=== PATIENT | female | born 1950 | race African-American/Black ===

== ENCOUNTER 2017-07-07 10:40 | Inpatient (IN) | payer BC, MEDICARE ==
[~2017-07-07] VITALS: Ht 162.6 cm; Wt 54.4 kg
[2017-07-07] MEDS ORDERED: METHYLPREDNISOLONE SOD SUCC 125 MG/2 ML VIAL IV STA (11:31)
[2017-07-07] MEDS ORDERED: IPRATROPIUM/ALBUTEROL 0.5-3(2.5)MG/3ML NEB HHN ONE (11:45)
[2017-07-07 12:02] LABS: BG BASE EXCESS -3.1 mmol/L (-2.0-2.0); BG CARBOXYHEMOGLOBIN 0.2 % (0.5-1.5); BG FRACTION INSPIRED OXYGEN 21; BG HCO3 ACT 19.5 mmol/L (22.0-26.0); BG METHEMOGLOBIN 0.1 % (0.0-1.5); BG OXYHEMOGLOBIN 91.7 % (94.0-97.0); BG PCO2 27.5 mmHg (35.0-45.0); BG PH 7.468 (7.350-7.450); BG PO2 60.5 mmHg (75.0-100.0); BG SAMPLE SITE RIGHT RADIAL; BG TOTAL HEMOGLOBIN 11.6 g/dL (12.0-18.0); BG VENT MODE ROOM AIR
[2017-07-07 12:44] LABS: BASOPHILS % 0.7 % (0.0-2.0); EOSINOPHILS % 2.1 % (0.0-5.0); HEMATOCRIT. 33.7 % (36.0-48.0); HEMOGLOBIN. 10.8 g/dL (12.0-16.0); LYMPHOCYTES % 19.4 % (20.0-50.0); MEAN CORPUSCULAR HEMOGLOBIN 27.3 pg (28.0-32.0); MEAN CORPUSCULAR VOLUME 85.5 fL (81.0-99.0); MEAN PLATELET VOLUME 9.5 fl (7.4-10.4); MONOCYTES % 9.6 % (2.0-8.0); NEUTROPHILS % 68.2 % (40.0-76.0); PLATELET 401 x1000/uL (130-400); RED BLOOD CELL COUNT 3.95 mill/uL (4.2-5.4); RED CELL DISTRIBUTION WIDTH 14.6 % (11.6-14.6)
[2017-07-07 12:52] LABS: INR 1.1; PROTHROMBIN TIME 11.7 sec (9.4-11.6)
[2017-07-07 12:57] LABS: CHLORIDE 107 mEq/L (98-107); CREATINE KINASE 107 IU/L (26-192)
[2017-07-07 12:59] LABS: TROPONIN I 0.05 ng/mL (0.00-0.04)
[2017-07-07] MEDS ORDERED: FUROSEMIDE 20MG/2ML VIAL IVP ONE (14:00)
[2017-07-07] MEDS ORDERED: LEVOFLOXACIN 750MG PREMIX 150 ML IV ONE (14:15)
[2017-07-07 19:00] VITALS: BP 164/94
[2017-07-07 20:00] VITALS: BP 164/94
[2017-07-07] MEDS ORDERED: MAGNESIUM/ALUMINUM HYDROXIDE/SIMETHICONE 30ML UDC PO PRN (20:30)
[2017-07-07] MEDS ORDERED: HYDROCODONE/ACETAMINOPHEN 5/325MG TABLET PO PRN (20:30)
[2017-07-07] MEDS ORDERED: ACETAMINOPHEN 325MG TABLET PO PRN (20:30)
[2017-07-07] MEDS ORDERED: MORPHINE SULFATE 4 MG/ML CPJ (NOT FOR IM USE) IV PRN (20:30)
[2017-07-07] MEDS ORDERED: LORAZEPAM 2MG/ML CPJ IV PRN (20:30)
[2017-07-07] MEDS ORDERED: ONDANSETRON HCL 4MG/2ML VIAL IV PRN (20:30)
[2017-07-07] MEDS ORDERED: PIPERACILLIN/TAZ 2.25G PREMIX 50 ML IV SCH (22:00)
[2017-07-07] MEDS: PIPERACILLIN/TAZ 2.25G PREMIX 50 ML IV SCH (22:03)
[2017-07-07] MEDS: CLONIDINE 0.1MG TABLET PO PRN (22:03)
[2017-07-07] MEDS: IPRATROPIUM/ALBUTEROL 0.5-3(2.5)MG/3ML NEB INH PRN (22:24)
[2017-07-08] VITALS (7 sets, daily range): BP systolic 112–174; BP diastolic 70–98
[2017-07-08] MEDS: CLONIDINE 0.1MG TABLET PO PRN (04:48)
[2017-07-08] MEDS: PIPERACILLIN/TAZ 2.25G PREMIX 50 ML IV SCH ×2 (05:07→13:45)
[2017-07-08 06:37] LABS: BASOPHILS % 0.1 % (0.0-2.0); HEMATOCRIT. 29.7 % (36.0-48.0); HEMOGLOBIN. 9.6 g/dL (12.0-16.0); LYMPHOCYTES % 8.4 % (20.0-50.0); MEAN CORPUSCULAR HEMOGLOBIN 27.4 pg (28.0-32.0); MEAN CORPUSCULAR VOLUME 84.4 fL (81.0-99.0); MEAN PLATELET VOLUME 9.5 fl (7.4-10.4); MONOCYTES % 4.5 % (2.0-8.0); PLATELET 383 x1000/uL (130-400); RED BLOOD CELL COUNT 3.52 mill/uL (4.2-5.4); RED CELL DISTRIBUTION WIDTH 14.2 % (11.6-14.6)
[2017-07-08 07:30] LABS: CHLORIDE 107 mEq/L (98-107)
[2017-07-08] MEDS: AMLODIPINE 10MG TABLET PO SCH (08:35)
[2017-07-08] MEDS ORDERED: FUROSEMIDE 40MG/4ML VIAL IV SCH (09:00)
[2017-07-08] MEDS: SODIUM CHLORIDE 0.45% 1,000 ML IV SCH ×2 (11:06→20:27)
[2017-07-08 15:00] LABS: HEPATITIS B SURFACE ANTIGEN NEGATIVE
[2017-07-08 15:28] LABS: HEPATITIS B CORE AB IGM NEGATIVE
[2017-07-08 15:28] LABS: CLARITY URINE CLEAR (CLEAR); COLOR URINE YELLOW (YELLOW); KETONES URINE NEGATIVE (NEGATIVE); LEUKOCYTE ESTERASE URINE 2+ (NEGATIVE); NITRITE URINE NEGATIVE (NEGATIVE); OCCULT BLOOD URINE 2+ (NEGATIVE); PROTEIN URINE 3+ (NEGATIVE); SPECIFIC GRAVITY URINE 1.016 (1.005-1.030); UROBILINOGEN URINE 0.2 E.U./dL (0.2-1.0)
[2017-07-08 15:30] LABS: HEPATITIS A AB IGM NEGATIVE (NEGATIVE)
[2017-07-09] MEDS: PIPERACILLIN/TAZOBACTAM 2.25 G in SODIUM CHLORIDE 0.9% 50 ML IV SCH ×4 (00:22→21:55)
[2017-07-09 04:00] VITALS: BP 132/85
[2017-07-09] MEDS: SODIUM CHLORIDE 0.45% 1,000 ML IV SCH (06:15)
[2017-07-09] MEDS: AMLODIPINE 10MG TABLET PO SCH (08:27)
[2017-07-09 08:42] VITALS: BP 139/88
[2017-07-09 12:00] LABS: BASOPHILS % 0.6 % (0.0-2.0); EOSINOPHILS % 2.3 % (0.0-5.0); HEMATOCRIT. 27.9 % (36.0-48.0); HEMOGLOBIN. 8.9 g/dL (12.0-16.0); LYMPHOCYTES % 12.5 % (20.0-50.0); MEAN CORPUSCULAR HEMOGLOBIN 27.3 pg (28.0-32.0); MEAN CORPUSCULAR VOLUME 85.4 fL (81.0-99.0); MEAN PLATELET VOLUME 9.6 fl (7.4-10.4); MONOCYTES % 6.7 % (2.0-8.0); NEUTROPHILS % 77.9 % (40.0-76.0); PLATELET 379 x1000/uL (130-400); RED BLOOD CELL COUNT 3.27 mill/uL (4.2-5.4); RED CELL DISTRIBUTION WIDTH 14.6 % (11.6-14.6)
[2017-07-09 15:21] LABS: INR 1.1; PARTIAL THROMBOPLASTIN TIME 27.3 sec (23.4-31.0); PROTHROMBIN TIME 11.9 sec (9.4-11.6)
[2017-07-09 16:22] VITALS: BP 126/72
[2017-07-09 20:00] VITALS: BP 142/71
[2017-07-10] VITALS (12 sets, daily range): BP systolic 113–150; BP diastolic 61–95
[2017-07-10] MEDS: PIPERACILLIN/TAZOBACTAM 2.25 G in SODIUM CHLORIDE 0.9% 50 ML IV SCH ×3 (06:00→21:17)
[2017-07-10 07:24] LABS: BASOPHILS % 0.7 % (0.0-2.0); HEMATOCRIT. 29.7 % (36.0-48.0); HEMOGLOBIN. 9.6 g/dL (12.0-16.0); LYMPHOCYTES % 14.9 % (20.0-50.0); MEAN CORPUSCULAR HEMOGLOBIN 27.6 pg (28.0-32.0); MEAN CORPUSCULAR VOLUME 85.7 fL (81.0-99.0); MEAN PLATELET VOLUME 9.3 fl (7.4-10.4); MONOCYTES % 11.3 % (2.0-8.0); NEUTROPHILS % 67.1 % (40.0-76.0); PLATELET 343 x1000/uL (130-400); RED BLOOD CELL COUNT 3.47 mill/uL (4.2-5.4); RED CELL DISTRIBUTION WIDTH 14.6 % (11.6-14.6)
[2017-07-10] MEDS ORDERED: LIDOCAINE 1%/EPI 1:200,000 10 ML VIAL IJ ONE (07:41)
[2017-07-10] MEDS ORDERED: HEPARIN 1000 UNITS/ML 10ML ONE (07:41)
[2017-07-10] MEDS ORDERED: SODIUM BICARBONATE 4% (2.4MEQ) 5ML VIAL IV ONE ×2 (07:41→11:36)
[2017-07-10] MEDS ORDERED: FENTANYL CITRATE/PF 50MCG/ML 2ML VIAL ONE ×2 (07:55→12:37)
[2017-07-10 07:58] LABS: *AMPHETAMINES SCREEN URINE NEGATIVE (NEGATIVE); *BARBITURATES SCREEN URINE NEGATIVE (NEGATIVE); *COCAINE SCREEN URINE NEGATIVE (NEGATIVE); METHADONE URINE SCREEN NEGATIVE (NEGATIVE)
[2017-07-10 07:59] LABS: *BENZODIAZEPINES SCREEN URINE NEGATIVE (NEGATIVE); CANNABINOID URINE SCREEN NEGATIVE (NEGATIVE); OPIATES URINE SCREEN NEGATIVE (NEGATIVE); PHENCYCLIDINE URINE SCREEN NEGATIVE (NEGATIVE)
[2017-07-10] MEDS: AMLODIPINE 10MG TABLET PO SCH (09:23)
[2017-07-10] MEDS ORDERED: LIDOCAINE HCL/PF 1% 10 MG/ML 5ML VIAL ONE (11:36)
[2017-07-10 13:07] LABS: A/G RATIO 0.7 (0.7-1.7); ALBUMIN 2.8 g/dL (2.9-4.4); ALPHA-1-GLOBULIN 0.3 g/dL (0.0-0.4); BETA GLOBULIN 1.1 g/dL (0.7-1.3); GAMMA GLOBULINS 1.5 g/dL (0.4-1.8); GLOBULIN TOTAL 3.9 g/dL (2.2-3.9); M-SPIKE Not Observed g/dL (Not Observed); TOTAL PROTEIN SERUM 6.7 g/dL (6.0-8.5)
[2017-07-10] MEDS ORDERED: FENTANYL CITRATE/PF 50MCG/ML 2ML VIAL IV ONE (13:15)
[2017-07-10 18:03] LABS: HEMATOCRIT 27.9 % (36.0-48.0); HEMOGLOBIN 9.1 g/dL (12.0-16.0)
[2017-07-10 18:11] LABS: INR 1.2; PARTIAL THROMBOPLASTIN TIME 27.6 sec (23.4-31.0)
[2017-07-11] VITALS: BP 127/73
[2017-07-11 04:00] VITALS: BP 146/77
[2017-07-11] MEDS: PIPERACILLIN/TAZOBACTAM 2.25 G in SODIUM CHLORIDE 0.9% 50 ML IV SCH ×2 (05:12→13:18)
[2017-07-11 07:16] LABS: BASOPHILS % 0.5 % (0.0-2.0); EOSINOPHILS % 5.9 % (0.0-5.0); HEMATOCRIT. 27.9 % (36.0-48.0); HEMOGLOBIN. 8.8 g/dL (12.0-16.0); LYMPHOCYTES % 16.4 % (20.0-50.0); MEAN CORPUSCULAR HEMOGLOBIN 26.9 pg (28.0-32.0); MEAN CORPUSCULAR VOLUME 85.1 fL (81.0-99.0); MEAN PLATELET VOLUME 9.5 fl (7.4-10.4); MONOCYTES % 12.4 % (2.0-8.0); NEUTROPHILS % 64.8 % (40.0-76.0); PLATELET 314 x1000/uL (130-400); RED BLOOD CELL COUNT 3.28 mill/uL (4.2-5.4); RED CELL DISTRIBUTION WIDTH 14.4 % (11.6-14.6)
[2017-07-11 07:49] LABS: PHOSPHORUS 5.3 mg/dL (2.5-4.9)
[2017-07-11 08:00] VITALS: BP 145/90
[2017-07-11] MEDS: AMLODIPINE 10MG TABLET PO SCH (09:35)
[2017-07-11] MEDS ORDERED: POTASSIUM CHLORIDE 20MEQ/PACKET PO NR (09:45)
[2017-07-11 12:00] VITALS: BP 142/83
[2017-07-11 16:00] VITALS: BP 131/86
[2017-07-11 20:00] VITALS: BP 122/79
[2017-07-11] MEDS: PIPERACILLIN/TAZ 2.25G PREMIX 50 ML IV SCH (21:00)
[2017-07-12] VITALS: BP 122/68
[2017-07-12 04:00] VITALS: BP 149/91
[2017-07-12] MEDS: PIPERACILLIN/TAZ 2.25G PREMIX 50 ML IV SCH (05:55)
[2017-07-12 07:01] LABS: BASOPHILS % 0.4 % (0.0-2.0); EOSINOPHILS % 5.6 % (0.0-5.0); HEMATOCRIT. 29.4 % (36.0-48.0); HEMOGLOBIN. 9.4 g/dL (12.0-16.0); LYMPHOCYTES % 12.1 % (20.0-50.0); MEAN CORPUSCULAR HEMOGLOBIN 27.2 pg (28.0-32.0); MEAN CORPUSCULAR VOLUME 84.9 fL (81.0-99.0); MEAN PLATELET VOLUME 9.2 fl (7.4-10.4); MONOCYTES % 13.2 % (2.0-8.0); NEUTROPHILS % 68.7 % (40.0-76.0); PLATELET 310 x1000/uL (130-400); RED BLOOD CELL COUNT 3.46 mill/uL (4.2-5.4); RED CELL DISTRIBUTION WIDTH 14.5 % (11.6-14.6)
[2017-07-12 08:00] VITALS: BP 144/86
[2017-07-12] MEDS: AMLODIPINE 10MG TABLET PO SCH (08:23)
[2017-07-12 13:04] VITALS: BP 143/82
[2017-07-12] MEDS: IPRATROPIUM/ALBUTEROL 0.5-3(2.5)MG/3ML NEB INH PRN (14:10)
== END 2017-07-12 15:29 | disposition home or self-care (01) | DRG 682 ==
LOC: ER 11:27 → 8WST 13:58 → EDBEDREQ 14:00 → ENRESERV 15:36
PROVIDERS: ADMIT Hospitalist; ATTEND Hospitalist
PROC: 0TB43ZX Excision of Left Kidney Pelvis, Percutaneous Approach, Diagnostic (ICD-10-PCS; principal; 2017-07-10)
DX: N17.9 Acute kidney failure, unspecified (principal); J96.01 Acute respiratory failure with hypoxia; E43 Unspecified severe protein-calorie malnutrition; I50.43 Acute on chronic combined systolic (congestive) and diastolic (congestive) heart failure; E87.2 Acidosis; J18.9 Pneumonia, unspecified organism; I13.0 Hypertensive heart and chronic kidney disease with heart failure and stage 1 through stage 4 chronic kidney disease, or unspecified chronic kidney disease; I16.0 Hypertensive urgency; D63.8 Anemia in other chronic diseases classified elsewhere; D72.819 Decreased white blood cell count, unspecified; Z60.2 Problems related to living alone; N18.9 Chronic kidney disease, unspecified; Z68.20 Body mass index [BMI] 20.0-20.9, adult; Z82.49 Family history of ischemic heart disease and other diseases of the circulatory system; Z87.891 Personal history of nicotine dependence; Z90.710 Acquired absence of both cervix and uterus; Z88.2 Allergy status to sulfonamides
CPT/HCPCS: 36415; 36600; 71045; 71250; 76770; 76942; 80048; 80053; 80305; 81003; 82375; 82550; 82570; 82575; 82805; 83520; 83605; 83690; 83735; 83880; 84100; 84155; 84156; 84165; 84439; 84443; 84484; 85014; 85018; 85025; 85379; 85610; 85730; 86038; 86160; 86256; 86705; 86709; 86803; 87040; 87086; 87186; 87340; 87804; 88305; 88346; 88348; 93005; 93306; 93970; 94640; 96365; 96375; 99285; J1644; J1940; J1956; J2543; J2930; J3010; J3490; J7050; J7620; A4315

== ENCOUNTER 2017-08-30 11:18 | Inpatient (IN) | payer BC, MEDICARE ==
[~2017-08-30] VITALS: Ht 162.6 cm; Wt 66.7 kg
[2017-08-30 12:57] LABS: BASOPHILS % 0.9 % (0.0-2.0); EOSINOPHILS % 1.9 % (0.0-5.0); HEMATOCRIT. 34.2 % (36.0-48.0); HEMOGLOBIN. 11.2 g/dL (12.0-16.0); LYMPHOCYTES % 19.3 % (20.0-50.0); MEAN CORPUSCULAR HEMOGLOBIN 27.3 pg (28.0-32.0); MEAN CORPUSCULAR VOLUME 83.1 fL (81.0-99.0); MEAN PLATELET VOLUME 8.1 fl (7.4-10.4); MONOCYTES % 11.9 % (2.0-8.0); PLATELET 342 x1000/uL (130-400); RED BLOOD CELL COUNT 4.12 mill/uL (4.2-5.4); RED CELL DISTRIBUTION WIDTH 15.2 % (11.6-14.6)
[2017-08-30 13:05] LABS: CHLORIDE 114 mEq/L (98-107)
[2017-08-30 13:06] LABS: INR 1.1; PARTIAL THROMBOPLASTIN TIME 29.3 sec (23.4-31.0); PROTHROMBIN TIME 11.4 sec (9.4-11.6)
[2017-08-30] MEDS ORDERED: LORAZEPAM 0.5MG TABLET PO PRN (16:15)
[2017-08-30] MEDS ORDERED: ZOLPIDEM TARTRATE 5MG TABLET PO PRN (16:15)
[2017-08-30] MEDS ORDERED: ACETAMINOPHEN 325MG TABLET PO PRN (16:15)
[2017-08-30] MEDS ORDERED: DOCUSATE SODIUM 100MG CAPSULE PO PRN (16:15)
[2017-08-30] MEDS ORDERED: DIPHENHYDRAMINE 50MG/ML VIAL IV PRN (16:15)
[2017-08-30] MEDS ORDERED: IPRATROPIUM/ALBUTEROL 0.5-3(2.5)MG/3ML NEB INH PRN (16:15)
[2017-08-30] MEDS ORDERED: ENOXAPARIN 40MG/0.4ML SYR SUBCUT SCH (16:15)
[2017-08-30] MEDS ORDERED: ONDANSETRON HCL 4MG/2ML VIAL IV PRN (16:15)
[2017-08-30] MEDS ORDERED: NITROGLYCERIN 0.4MG TABLET SL SL PRN (16:15)
[2017-08-30] MEDS ORDERED: MAGNESIUM/ALUMINUM HYDROXIDE/SIMETHICONE 30ML UDC PO PRN (16:15)
[2017-08-30] MEDS ORDERED: CLONIDINE 0.1MG TABLET PO PRN (16:15)
[2017-08-30] MEDS ORDERED: GUAIFENESIN 200MG/10ML SUGAR FREE UDC PO PRN (16:15)
[2017-08-30] MEDS ORDERED: MORPHINE SULFATE 4 MG/ML CPJ (NOT FOR IM USE) IV PRN (16:30)
[2017-08-30] MEDS ORDERED: TRAMADOL 50MG TABLET PO PRN (16:30)
[2017-08-30] MEDS ORDERED: NA PHOS,M-B/NA PHOS,DI-BA ENEMA 118ML PR PRN (21:00)
[2017-08-30] MEDS ORDERED: FAMOTIDINE 20MG TABLET PO SCH (21:00)
[2017-08-30 22:00] VITALS: BP 163/101
[2017-08-30] MEDS: FUROSEMIDE 40MG/4ML VIAL IVP SCH (22:56)
[2017-08-30] MEDS: METOPROLOL TARTRATE 25MG TABLET PO SCH (22:57)
[2017-08-30] MEDS: SPIRONOLACTONE 25MG TABLET PO SCH (22:57)
[2017-08-30] MEDS ORDERED: METOLAZONE 10MG TABLET PO SCH (23:00)
[2017-08-30] MEDS: CITRIC ACID/SODIUM CITRATE SOLN 15ML UDC PO SCH (23:06)
[2017-08-30 23:35] VITALS: BP 163/101
[2017-08-30] MEDS ORDERED: FURO40TA5 PO (23:57)
[2017-08-30] MEDS ORDERED: AMLO10TA80 PO (23:57)
[2017-08-31] VITALS (7 sets, daily range): BP systolic 135–166; BP diastolic 80–100
[2017-08-31 08:08] LABS: CREATINE KINASE 61 IU/L (26-192)
[2017-08-31] MEDS: FUROSEMIDE 40MG/4ML VIAL IVP SCH ×2 (08:36→21:27)
[2017-08-31] MEDS: CITRIC ACID/SODIUM CITRATE SOLN 15ML UDC PO SCH ×3 (08:36→17:34)
[2017-08-31] MEDS: SPIRONOLACTONE 25MG TABLET PO SCH ×2 (08:36→21:33)
[2017-08-31] MEDS: METOPROLOL TARTRATE 25MG TABLET PO SCH ×2 (08:37→21:33)
[2017-08-31] MEDS: FAMOTIDINE 20MG TABLET PO SCH (08:37)
[2017-08-31] MEDS: ENOXAPARIN 30MG/0.3ML SYR SUBCUT SCH (08:37)
[2017-08-31] MEDS: ASPIRIN 325MG EC TABLET PO SCH (08:39)
[2017-08-31 12:05] LABS: CHLORIDE 116 mEq/L (98-107)
[2017-08-31 12:15] LABS: BASOPHILS % 1.2 % (0.0-2.0); EOSINOPHILS % 3.9 % (0.0-5.0); HEMATOCRIT. 32.5 % (36.0-48.0); HEMOGLOBIN. 10.4 g/dL (12.0-16.0); LYMPHOCYTES % 22.3 % (20.0-50.0); MEAN CORPUSCULAR HEMOGLOBIN 26.5 pg (28.0-32.0); MEAN CORPUSCULAR VOLUME 83.1 fL (81.0-99.0); MEAN PLATELET VOLUME 9.2 fl (7.4-10.4); MONOCYTES % 12.7 % (2.0-8.0); NEUTROPHILS % 59.9 % (40.0-76.0); PLATELET 328 x1000/uL (130-400); RED BLOOD CELL COUNT 3.91 mill/uL (4.2-5.4); RED CELL DISTRIBUTION WIDTH 14.9 % (11.6-14.6)
[2017-08-31 16:16] LABS: CREATINE KINASE 67 IU/L (26-192)
[2017-08-31 16:19] LABS: CREATINE KINASE MB FRACTION 1.1 ng/mL (0.5-3.6)
[2017-09-01] VITALS (20 sets, daily range): BP systolic 110–196; BP diastolic 11–129
[2017-09-01 07:27] LABS: BASOPHILS % 1.1 % (0.0-2.0); EOSINOPHILS % 2.7 % (0.0-5.0); HEMOGLOBIN. 10.7 g/dL (12.0-16.0); LYMPHOCYTES % 28.5 % (20.0-50.0); MEAN CORPUSCULAR HEMOGLOBIN 26.6 pg (28.0-32.0); MEAN CORPUSCULAR VOLUME 82.1 fL (81.0-99.0); MEAN PLATELET VOLUME 8.7 fl (7.4-10.4); NEUTROPHILS % 56.7 % (40.0-76.0); PLATELET 364 x1000/uL (130-400); RED BLOOD CELL COUNT 4.01 mill/uL (4.2-5.4); RED CELL DISTRIBUTION WIDTH 14.6 % (11.6-14.6)
[2017-09-01 07:41] LABS: PHOSPHORUS 4.1 mg/dL (2.5-4.9)
[2017-09-01] MEDS ORDERED: SODIUM BICARBONATE 4% (2.4MEQ) 5ML VIAL IV ONE (08:43)
[2017-09-01] MEDS ORDERED: LIDOCAINE HCL/PF 1% 10 MG/ML 5ML VIAL ONE (08:43)
[2017-09-01] MEDS ORDERED: POTASSIUM CHLORIDE 20MEQ/PACKET PO NR (08:45)
[2017-09-01] MEDS ORDERED: CEFAZOLIN 1000MG PREMIX 50 ML IV ONE ×2 (08:45→09:34)
[2017-09-01] MEDS: ENOXAPARIN 30MG/0.3ML SYR SUBCUT SCH (09:00)
[2017-09-01] MEDS: FUROSEMIDE 40MG/4ML VIAL IVP SCH (09:00)
[2017-09-01] MEDS: METOPROLOL TARTRATE 25MG TABLET PO SCH ×2 (09:00→20:53)
[2017-09-01] MEDS: SPIRONOLACTONE 25MG TABLET PO SCH ×2 (09:00→20:52)
[2017-09-01] MEDS ORDERED: FENTANYL CITRATE/PF 50MCG/ML 2ML VIAL ONE (09:34)
[2017-09-01 09:59] LABS: HEPATITIS B SURFACE ANTIGEN NEGATIVE
[2017-09-01] MEDS ORDERED: ATROPINE SULFATE 1MG/10ML SYR ONE (11:08)
[2017-09-01] MEDS ORDERED: FENTANYL CITRATE/PF 50MCG/ML 2ML VIAL IV ONE (11:30)
[2017-09-01] MEDS: CITRIC ACID/SODIUM CITRATE SOLN 15ML UDC PO SCH ×3 (11:40→17:37)
[2017-09-01] MEDS: ASPIRIN 325MG EC TABLET PO SCH (11:40)
[2017-09-01] MEDS: FAMOTIDINE 20MG TABLET PO SCH (11:40)
[2017-09-02] VITALS: BP 122/87
[2017-09-02] MEDS: FUROSEMIDE 40MG/4ML VIAL IVP SCH ×3 (00:11→20:32)
[2017-09-02 04:00] VITALS: BP 134/90
[2017-09-02 08:00] VITALS: BP 152/96
[2017-09-02] MEDS: ENOXAPARIN 30MG/0.3ML SYR SUBCUT SCH (09:25)
[2017-09-02] MEDS: FAMOTIDINE 20MG TABLET PO SCH (09:26)
[2017-09-02] MEDS: METOPROLOL TARTRATE 25MG TABLET PO SCH ×2 (09:27→20:32)
[2017-09-02] MEDS: SPIRONOLACTONE 25MG TABLET PO SCH ×2 (09:27→20:31)
[2017-09-02] MEDS: CITRIC ACID/SODIUM CITRATE SOLN 15ML UDC PO SCH ×3 (09:27→16:25)
[2017-09-02] MEDS: ASPIRIN 325MG EC TABLET PO SCH (09:50)
[2017-09-02 10:06] LABS: BG BASE EXCESS -4.7 mmol/L (-2.0-2.0); BG CARBOXYHEMOGLOBIN 0.1 % (0.5-1.5); BG DEOXYHEMOGLOBIN 2.1 % (0.0-5.0); BG FRACTION INSPIRED OXYGEN 24; BG HCO3 ACT 19.6 mmol/L (22.0-26.0); BG METHEMOGLOBIN 0.2 % (0.0-1.5); BG OXYGEN SATURATION 97.9 % (92.0-98.5); BG OXYHEMOGLOBIN 97.6 % (94.0-97.0); BG PCO2 33.4 mmHg (35.0-45.0); BG PH 7.386 (7.350-7.450); BG PO2 107.3 mmHg (75.0-100.0); BG SAMPLE SITE RIGHT RADIAL; BG TOTAL HEMOGLOBIN 11.3 g/dL (12.0-18.0); BG VENT MODE NASAL CANNULA
[2017-09-02 10:57] LABS: BASOPHILS % 1.1 % (0.0-2.0); EOSINOPHILS % 2.9 % (0.0-5.0); HEMOGLOBIN. 10.3 g/dL (12.0-16.0); LYMPHOCYTES % 21.7 % (20.0-50.0); MEAN CORPUSCULAR HEMOGLOBIN 27.3 pg (28.0-32.0); MEAN CORPUSCULAR VOLUME 82.2 fL (81.0-99.0); MEAN PLATELET VOLUME 8.6 fl (7.4-10.4); MONOCYTES % 13.6 % (2.0-8.0); NEUTROPHILS % 60.7 % (40.0-76.0); PLATELET 330 x1000/uL (130-400); RED BLOOD CELL COUNT 3.77 mill/uL (4.2-5.4); RED CELL DISTRIBUTION WIDTH 14.7 % (11.6-14.6)
[2017-09-02 11:49] LABS: PHOSPHORUS 3.7 mg/dL (2.5-4.9)
[2017-09-02 11:50] LABS: AMMONIA 21 uMol/L (<32)
[2017-09-02 12:15] LABS: VITAMIN B12 SERUM 637 pg/mL (211-911)
[2017-09-02 13:00] VITALS: BP 128/85
[2017-09-02 16:00] VITALS: BP 112/67
[2017-09-02 16:38] LABS: AMMONIA 32 uMol/L (<32)
[2017-09-02] MEDS: CLOPIDOGREL 75MG TABLET PO SCH (17:00)
[2017-09-02 18:07] LABS: T4 FREE 0.88 ng/dL (0.76-1.46)
[2017-09-02 20:00] VITALS: BP 134/91
[2017-09-02 20:38] LABS: CLARITY URINE CLEAR (CLEAR); COLOR URINE YELLOW (YELLOW); KETONES URINE NEGATIVE (NEGATIVE); LEUKOCYTE ESTERASE URINE NEGATIVE (NEGATIVE); NITRITE URINE NEGATIVE (NEGATIVE); OCCULT BLOOD URINE NEGATIVE (NEGATIVE); PROTEIN URINE 2+ (NEGATIVE); SPECIFIC GRAVITY URINE 1.012 (1.005-1.030); UROBILINOGEN URINE 0.2 E.U./dL (0.2-1.0)
[2017-09-03] VITALS: BP 131/82
[2017-09-03 04:00] VITALS: BP 142/94
[2017-09-03 06:51] LABS: BASOPHILS % 1.6 % (0.0-2.0); EOSINOPHILS % 3.5 % (0.0-5.0); HEMATOCRIT. 32.9 % (36.0-48.0); HEMOGLOBIN. 10.6 g/dL (12.0-16.0); MEAN CORPUSCULAR HEMOGLOBIN 26.6 pg (28.0-32.0); MEAN CORPUSCULAR VOLUME 82.4 fL (81.0-99.0); MEAN PLATELET VOLUME 8.5 fl (7.4-10.4); MONOCYTES % 13.6 % (2.0-8.0); NEUTROPHILS % 49.3 % (40.0-76.0); PLATELET 317 x1000/uL (130-400); RED BLOOD CELL COUNT 3.99 mill/uL (4.2-5.4); RED CELL DISTRIBUTION WIDTH 14.8 % (11.6-14.6)
[2017-09-03 07:21] LABS: PHOSPHORUS 4.8 mg/dL (2.5-4.9)
[2017-09-03] MEDS: FAMOTIDINE 20MG TABLET PO SCH (08:18)
[2017-09-03] MEDS: CITRIC ACID/SODIUM CITRATE SOLN 15ML UDC PO SCH ×3 (08:19→16:59)
[2017-09-03] MEDS: CLOPIDOGREL 75MG TABLET PO SCH (08:19)
[2017-09-03] MEDS: ENOXAPARIN 30MG/0.3ML SYR SUBCUT SCH (08:20)
[2017-09-03 08:24] VITALS: BP 149/92
[2017-09-03] MEDS: METOPROLOL TARTRATE 25MG TABLET PO SCH (09:00)
[2017-09-03] MEDS: SPIRONOLACTONE 25MG TABLET PO SCH (09:00)
[2017-09-03] MEDS ORDERED: FOLIC ACID 1MG TABLET PO SCH (09:00)
[2017-09-03] MEDS: FUROSEMIDE 40MG/4ML VIAL IVP SCH (09:00)
[2017-09-03 12:00] VITALS: BP 106/62
[2017-09-03 15:16] VITALS: BP 106/62
[2017-09-03 16:00] VITALS: BP 114/89
== END 2017-09-03 17:15 | DRG 291 ==
LOC: ER 11:38 → EDBEDREQ 14:55 → SUPCPDRO 18:16 → 8WST 19:14 → ENRESERV 19:14
PROVIDERS: ADMIT Internal Medicine; ATTEND Internal Medicine
PROC: 0JH63XZ Insertion of Tunneled Vascular Access Device into Chest Subcutaneous Tissue and Fascia, Percutaneous Approach (ICD-10-PCS; principal; 2017-09-01)
PROC: 02HV33Z Insertion of Infusion Device into Superior Vena Cava, Percutaneous Approach (ICD-10-PCS; 2017-09-01)
PROC: B5181ZA Fluoroscopy of Superior Vena Cava using Low Osmolar Contrast, Guidance (ICD-10-PCS; 2017-09-01)
PROC: 5A1D70Z Performance of Urinary Filtration, Intermittent, Less than 6 Hours Per Day (ICD-10-PCS; 2017-09-01)
PROC: 0JH63XZ Insertion of Tunneled Vascular Access Device into Chest Subcutaneous Tissue and Fascia, Percutaneous Approach (ICD-10-PCS; 2017-09-01)
PROC: 5A1D70Z Performance of Urinary Filtration, Intermittent, Less than 6 Hours Per Day (ICD-10-PCS; 2017-09-03)
DX: I13.2 Hypertensive heart and chronic kidney disease with heart failure and with stage 5 chronic kidney disease, or end stage renal disease (principal); J96.00 Acute respiratory failure, unspecified whether with hypoxia or hypercapnia; N17.0 Acute kidney failure with tubular necrosis; G92 Toxic encephalopathy; E44.0 Moderate protein-calorie malnutrition; R47.01 Aphasia; H53.469 Homonymous bilateral field defects, unspecified side; I50.33 Acute on chronic diastolic (congestive) heart failure; I50.43 Acute on chronic combined systolic (congestive) and diastolic (congestive) heart failure; N18.6 End stage renal disease; E87.0 Hyperosmolality and hypernatremia; E87.2 Acidosis; I69.354 Hemiplegia and hemiparesis following cerebral infarction affecting left non-dominant side; I42.9 Cardiomyopathy, unspecified; D63.8 Anemia in other chronic diseases classified elsewhere; R74.8 Abnormal levels of other serum enzymes; E78.5 Hyperlipidemia, unspecified; E78.00 Pure hypercholesterolemia, unspecified; D72.819 Decreased white blood cell count, unspecified; Z79.899 Other long term (current) drug therapy; Z88.2 Allergy status to sulfonamides; Z79.82 Long term (current) use of aspirin; Z99.2 Dependence on renal dialysis; Z68.25 Body mass index [BMI] 25.0-25.9, adult
CPT/HCPCS: 36415; 36558; 36600; 70450; 70544; 70553; 71045; 76770; 76937; 77001; 80048; 80053; 80061; 81003; 82140; 82375; 82550; 82553; 82607; 82746; 82805; 82962; 83036; 83540; 83550; 83690; 83735; 83880; 84100; 84439; 84443; 84481; 84484; 85025; 85610; 85730; 86803; 87040; 87086; 87340; 92523; 92610; 93005; 93306; 93880; 93970; 96365; 97116; 97162; 97166; 97530; 97535; 99291; C1750; C1769; J0461; J0690; J1642; J1650; J1940; J3010; J3490

== ENCOUNTER 2017-09-03 17:35 | Inpatient (IN) | payer BC, MEDICARE ==
[~2017-09-03] VITALS: Ht 162.6 cm; Wt 67.8 kg
[~2017-09-03 17:35] MED LIST: AMLO10TA80 PO; FURO40TA5 PO
[2017-09-03] MEDS ORDERED: IPRATROPIUM/ALBUTEROL 0.5-3(2.5)MG/3ML NEB HHN PRN ×2 (19:00)
[2017-09-03] MEDS ORDERED: DIPHENHYDRAMINE 25MG CAPSULE PO PRN (19:00)
[2017-09-03] MEDS ORDERED: ACETAMINOPHEN 325MG TABLET PO PRN (19:00)
[2017-09-03] MEDS ORDERED: ONDANSETRON HCL 4MG/2ML VIAL IV PRN (19:00)
[2017-09-03] MEDS ORDERED: CLONIDINE 0.1MG TABLET PO PRN (19:00)
[2017-09-03 19:45] VITALS: BP 134/94
[2017-09-03 20:00] VITALS: BP 134/94
[2017-09-03] MEDS ORDERED: NA PHOS,M-B/NA PHOS,DI-BA ENEMA 118ML PR PRN (20:00)
[2017-09-03] MEDS ORDERED: NITROGLYCERIN 0.4MG TABLET SL SL PRN (20:00)
[2017-09-03] MEDS ORDERED: GUAIFENESIN 200MG/10ML SUGAR FREE UDC PO PRN (20:00)
[2017-09-03] MEDS ORDERED: HEPARIN 100 UNITS/1 ML VIAL IVF PRN (20:00)
[2017-09-03] MEDS ORDERED: ZOLPIDEM TARTRATE 5MG TABLET PO PRN (20:00)
[2017-09-03] MEDS ORDERED: MAGNESIUM/ALUMINUM HYDROXIDE/SIMETHICONE 30ML UDC PO PRN (20:00)
[2017-09-03] MEDS ORDERED: LORAZEPAM 0.5MG TABLET PO PRN (20:00)
[2017-09-03] MEDS ORDERED: TRAMADOL 50MG TABLET PO PRN (20:00)
[2017-09-03] MEDS ORDERED: DOCUSATE SODIUM 100MG CAPSULE PO PRN (20:00)
[2017-09-03] MEDS: SPIRONOLACTONE 25MG TABLET PO SCH (20:43)
[2017-09-03] MEDS: METOPROLOL TARTRATE 25MG TABLET PO SCH (20:43)
[2017-09-03 21:47] VITALS: BP 114/85
[2017-09-04 07:16] LABS: HEMATOCRIT. 33.9 % (36.0-48.0); HEMOGLOBIN. 10.9 g/dL (12.0-16.0); MEAN CORPUSCULAR HEMOGLOBIN 26.6 pg (28.0-32.0); MEAN CORPUSCULAR VOLUME 82.2 fL (81.0-99.0); MEAN PLATELET VOLUME 8.7 fl (7.4-10.4); PLATELET 320 x1000/uL (130-400); RED BLOOD CELL COUNT 4.12 mill/uL (4.2-5.4); RED CELL DISTRIBUTION WIDTH 14.8 % (11.6-14.6)
[2017-09-04 07:54] LABS: CHLORIDE 96 mEq/L (98-107)
[2017-09-04 08:05] LABS: PHOSPHORUS 6.2 mg/dL (2.5-4.9)
[2017-09-04 08:14] VITALS: BP 120/81
[2017-09-04 08:28] LABS: PREALBUMIN 20.5 mg/dL (20.0-40.0)
[2017-09-04] MEDS: CITRIC ACID/SODIUM CITRATE SOLN 15ML UDC PO SCH ×2 (08:32→12:23)
[2017-09-04] MEDS: FOLIC ACID 1MG TABLET PO SCH (08:32)
[2017-09-04] MEDS: CLOPIDOGREL 75MG TABLET PO SCH (08:32)
[2017-09-04] MEDS: FAMOTIDINE 20MG TABLET PO SCH (08:32)
[2017-09-04] MEDS: SPIRONOLACTONE 25MG TABLET PO SCH (08:33)
[2017-09-04] MEDS: METOPROLOL TARTRATE 25MG TABLET PO SCH ×2 (08:33→21:00)
[2017-09-04] MEDS: ENOXAPARIN 30MG/0.3ML SYR SUBCUT SCH (08:34)
[2017-09-04 20:00] VITALS: BP 113/66
[2017-09-04] MEDS: ATORVASTATIN CALCIUM 20MG TABLET PO SCH (21:31)
[2017-09-05 04:50] LABS: CLARITY URINE CLEAR (CLEAR); COLOR URINE YELLOW (YELLOW); KETONES URINE TRACE (NEGATIVE); LEUKOCYTE ESTERASE URINE TRACE (NEGATIVE); NITRITE URINE NEGATIVE (NEGATIVE); OCCULT BLOOD URINE NEGATIVE (NEGATIVE); PROTEIN URINE 2+ (NEGATIVE); UROBILINOGEN URINE 0.2 E.U./dL (0.2-1.0)
[2017-09-05 07:41] LABS: HEMATOCRIT. 33.2 % (36.0-48.0); HEMOGLOBIN. 10.6 g/dL (12.0-16.0); MEAN CORPUSCULAR HEMOGLOBIN 26.3 pg (28.0-32.0); MEAN CORPUSCULAR VOLUME 82.3 fL (81.0-99.0); PLATELET 309 x1000/uL (130-400); RED BLOOD CELL COUNT 4.04 mill/uL (4.2-5.4); RED CELL DISTRIBUTION WIDTH 14.5 % (11.6-14.6)
[2017-09-05 08:00] VITALS: BP 132/90
[2017-09-05] MEDS: METOPROLOL TARTRATE 25MG TABLET PO SCH ×2 (08:31→21:37)
[2017-09-05] MEDS: ENOXAPARIN 30MG/0.3ML SYR SUBCUT SCH (08:53)
[2017-09-05] MEDS: FOLIC ACID 1MG TABLET PO SCH (08:53)
[2017-09-05] MEDS: CLOPIDOGREL 75MG TABLET PO SCH (08:53)
[2017-09-05] MEDS: FAMOTIDINE 20MG TABLET PO SCH (08:53)
[2017-09-05 13:40] LABS: PLATELET ESTIMATE NORMAL
[2017-09-05] MEDS ORDERED: HEPARIN SODIUM 1,000 UNIT/1ML VIAL IV SCH (17:30)
[2017-09-05 20:00] VITALS: BP 125/82
[2017-09-05 21:31] LABS: PLATELET ESTIMATE NORMAL
[2017-09-05] MEDS: ATORVASTATIN CALCIUM 20MG TABLET PO SCH (21:37)
[2017-09-06 07:03] LABS: BASOPHILS % 0.6 % (0.0-2.0); EOSINOPHILS % 2.1 % (0.0-5.0); HEMATOCRIT. 33.3 % (36.0-48.0); HEMOGLOBIN. 10.8 g/dL (12.0-16.0); LYMPHOCYTES % 19.2 % (20.0-50.0); MEAN CORPUSCULAR VOLUME 83.4 fL (81.0-99.0); MEAN PLATELET VOLUME 9.2 fl (7.4-10.4); MONOCYTES % 14.4 % (2.0-8.0); NEUTROPHILS % 63.7 % (40.0-76.0); PLATELET 282 x1000/uL (130-400); RED BLOOD CELL COUNT 3.99 mill/uL (4.2-5.4); RED CELL DISTRIBUTION WIDTH 14.4 % (11.6-14.6)
[2017-09-06] MEDS: LACTULOSE 20G/30ML UDC PO SCH ×3 (07:48→13:50)
[2017-09-06 08:00] VITALS: BP 112/73
[2017-09-06] MEDS ORDERED: NA PHOS,M-B/NA PHOS,DI-BA ENEMA 118ML PR ONE (08:00)
[2017-09-06] MEDS ORDERED: LORAZEPAM 0.5MG TABLET PO PRN (08:00)
[2017-09-06] MEDS: DOCUSATE SODIUM 100MG CAPSULE PO SCH ×2 (09:40→16:56)
[2017-09-06] MEDS: ENOXAPARIN 30MG/0.3ML SYR SUBCUT SCH (09:40)
[2017-09-06] MEDS: FOLIC ACID 1MG TABLET PO SCH (09:41)
[2017-09-06] MEDS: CLOPIDOGREL 75MG TABLET PO SCH (09:41)
[2017-09-06] MEDS: FAMOTIDINE 20MG TABLET PO SCH (09:41)
[2017-09-06] MEDS: METOPROLOL TARTRATE 25MG TABLET PO SCH ×2 (09:41→21:56)
[2017-09-06 20:00] VITALS: BP 122/67
[2017-09-06] MEDS: ATORVASTATIN CALCIUM 20MG TABLET PO SCH (21:56)
[2017-09-06] MEDS: POLYETHYLENE GLYCOL 3350 (17GM) 1 DOSE PACK PO SCH (21:56)
[2017-09-07] MEDS: BISACODYL 10MG SUPP PR PRN (05:34)
[2017-09-07 06:53] LABS: HEMATOCRIT. 31.9 % (36.0-48.0); HEMOGLOBIN. 10.1 g/dL (12.0-16.0); MEAN CORPUSCULAR HEMOGLOBIN 26.3 pg (28.0-32.0); MEAN CORPUSCULAR VOLUME 82.7 fL (81.0-99.0); MEAN PLATELET VOLUME 9.4 fl (7.4-10.4); PLATELET 272 x1000/uL (130-400); RED BLOOD CELL COUNT 3.86 mill/uL (4.2-5.4); RED CELL DISTRIBUTION WIDTH 14.4 % (11.6-14.6)
[2017-09-07 08:21] VITALS: BP 125/83
[2017-09-07] MEDS: ENOXAPARIN 30MG/0.3ML SYR SUBCUT SCH (08:23)
[2017-09-07] MEDS: CLOPIDOGREL 75MG TABLET PO SCH (08:23)
[2017-09-07] MEDS: METOPROLOL TARTRATE 25MG TABLET PO SCH ×2 (08:24→21:00)
[2017-09-07] MEDS: FAMOTIDINE 20MG TABLET PO SCH (08:24)
[2017-09-07] MEDS: FOLIC ACID 1MG TABLET PO SCH (08:24)
[2017-09-07] MEDS: DOCUSATE SODIUM 100MG CAPSULE PO SCH ×2 (09:00→16:23)
[2017-09-07] MEDS ORDERED: HEPARIN SODIUM 1,000 UNIT/1ML VIAL IV NR (17:45)
[2017-09-07 19:30] LABS: PLATELET ESTIMATE NORMAL
[2017-09-07 20:00] VITALS: BP 116/70
[2017-09-07] MEDS: POLYETHYLENE GLYCOL 3350 (17GM) 1 DOSE PACK PO SCH (21:00)
[2017-09-07] MEDS: ATORVASTATIN CALCIUM 20MG TABLET PO SCH (21:25)
[2017-09-08 07:20] LABS: HEMATOCRIT. 31.1 % (36.0-48.0); HEMOGLOBIN. 9.7 g/dL (12.0-16.0); MEAN CORPUSCULAR HEMOGLOBIN 26.2 pg (28.0-32.0); MEAN CORPUSCULAR VOLUME 83.3 fL (81.0-99.0); MEAN PLATELET VOLUME 9.2 fl (7.4-10.4); PLATELET 263 x1000/uL (130-400); RED BLOOD CELL COUNT 3.73 mill/uL (4.2-5.4); RED CELL DISTRIBUTION WIDTH 14.6 % (11.6-14.6)
[2017-09-08 08:00] VITALS: BP 117/75
[2017-09-08] MEDS: DOCUSATE SODIUM 100MG CAPSULE PO SCH ×2 (10:11→17:35)
[2017-09-08] MEDS: FAMOTIDINE 20MG TABLET PO SCH (10:11)
[2017-09-08] MEDS: ENOXAPARIN 30MG/0.3ML SYR SUBCUT SCH (10:11)
[2017-09-08] MEDS: FOLIC ACID 1MG TABLET PO SCH (10:11)
[2017-09-08] MEDS: CLOPIDOGREL 75MG TABLET PO SCH (10:12)
[2017-09-08] MEDS: FERROUS SULFATE 325MG TABLET PO SCH ×3 (10:12→17:35)
[2017-09-08] MEDS: METOPROLOL TARTRATE 25MG TABLET PO SCH ×2 (10:18→21:00)
[2017-09-08 15:03] LABS: HEPATITIS B SURFACE ANTIGEN NEGATIVE
[2017-09-08 15:31] LABS: HEPATITIS B CORE AB IGM NEGATIVE
[2017-09-08 15:33] LABS: HEPATITIS A AB IGM NEGATIVE (NEGATIVE)
[2017-09-08 16:13] LABS: PLATELET ESTIMATE NORMAL
[2017-09-08 20:00] VITALS: BP 109/66
[2017-09-08] MEDS ORDERED: LORAZEPAM 0.5MG TABLET PO PRN (20:00)
[2017-09-08] MEDS: POLYETHYLENE GLYCOL 3350 (17GM) 1 DOSE PACK PO SCH (21:12)
[2017-09-08] MEDS: ATORVASTATIN CALCIUM 20MG TABLET PO SCH (21:13)
[2017-09-09 06:20] LABS: HEMATOCRIT. 30.6 % (36.0-48.0); HEMOGLOBIN. 9.7 g/dL (12.0-16.0); MEAN CORPUSCULAR HEMOGLOBIN 26.6 pg (28.0-32.0); MEAN PLATELET VOLUME 9.5 fl (7.4-10.4); PLATELET 262 x1000/uL (130-400); RED BLOOD CELL COUNT 3.65 mill/uL (4.2-5.4); RED CELL DISTRIBUTION WIDTH 14.4 % (11.6-14.6)
[2017-09-09 08:00] VITALS: BP 136/88
[2017-09-09] MEDS: CLOPIDOGREL 75MG TABLET PO SCH (08:52)
[2017-09-09] MEDS: DOCUSATE SODIUM 100MG CAPSULE PO SCH ×2 (08:53→17:07)
[2017-09-09] MEDS: FOLIC ACID 1MG TABLET PO SCH (08:53)
[2017-09-09] MEDS: FERROUS SULFATE 325MG TABLET PO SCH ×3 (08:53→17:07)
[2017-09-09] MEDS: FAMOTIDINE 20MG TABLET PO SCH (08:53)
[2017-09-09] MEDS: ENOXAPARIN 30MG/0.3ML SYR SUBCUT SCH ×3 (08:54→09:00)
[2017-09-09] MEDS: METOPROLOL TARTRATE 25MG TABLET PO SCH ×2 (08:55→20:54)
[2017-09-09 18:03] LABS: ATYPICAL LYMPHOCYTES 2; PLATELET ESTIMATE NORMAL
[2017-09-09 20:00] VITALS: BP 113/61
[2017-09-09] MEDS: ATORVASTATIN CALCIUM 20MG TABLET PO SCH (20:54)
[2017-09-09] MEDS: POLYETHYLENE GLYCOL 3350 (17GM) 1 DOSE PACK PO SCH (20:54)
[2017-09-10 08:00] VITALS: BP 121/79
[2017-09-10 08:13] LABS: HEMATOCRIT. 32.1 % (36.0-48.0); HEMOGLOBIN. 10.2 g/dL (12.0-16.0); MEAN CORPUSCULAR HEMOGLOBIN 26.4 pg (28.0-32.0); MEAN CORPUSCULAR VOLUME 83.1 fL (81.0-99.0); MEAN PLATELET VOLUME 9.2 fl (7.4-10.4); PLATELET 275 x1000/uL (130-400); RED BLOOD CELL COUNT 3.86 mill/uL (4.2-5.4); RED CELL DISTRIBUTION WIDTH 14.9 % (11.6-14.6)
[2017-09-10] MEDS: DOCUSATE SODIUM 100MG CAPSULE PO SCH ×2 (08:48→17:47)
[2017-09-10] MEDS: FOLIC ACID 1MG TABLET PO SCH (08:49)
[2017-09-10] MEDS: FAMOTIDINE 20MG TABLET PO SCH (08:49)
[2017-09-10] MEDS: FERROUS SULFATE 325MG TABLET PO SCH ×3 (08:50→17:47)
[2017-09-10] MEDS: METOPROLOL TARTRATE 25MG TABLET PO SCH ×2 (08:51→21:38)
[2017-09-10] MEDS: CLOPIDOGREL 75MG TABLET PO SCH (08:51)
[2017-09-10] MEDS: ENOXAPARIN 30MG/0.3ML SYR SUBCUT SCH (08:52)
[2017-09-10] MEDS ORDERED: SODIUM POLYSTYRENE SULFONATE 15 G/60 ML BOT PO NR (11:15)
[2017-09-10 11:26] LABS: PLATELET ESTIMATE NORMAL
[2017-09-10 13:08] LABS: 25-HYDROXY VITAMIN D3 11 ng/mL (.)
[2017-09-10 20:00] VITALS: BP 126/72
[2017-09-10] MEDS: POLYETHYLENE GLYCOL 3350 (17GM) 1 DOSE PACK PO SCH (21:00)
[2017-09-10] MEDS: ATORVASTATIN CALCIUM 20MG TABLET PO SCH (21:38)
[2017-09-11 06:57] LABS: HEMATOCRIT. 28.9 % (36.0-48.0); HEMOGLOBIN. 9.3 g/dL (12.0-16.0); MEAN CORPUSCULAR HEMOGLOBIN 26.7 pg (28.0-32.0); MEAN CORPUSCULAR VOLUME 83.3 fL (81.0-99.0); MEAN PLATELET VOLUME 9.3 fl (7.4-10.4); PLATELET 238 x1000/uL (130-400); RED BLOOD CELL COUNT 3.47 mill/uL (4.2-5.4); RED CELL DISTRIBUTION WIDTH 14.7 % (11.6-14.6)
[2017-09-11 08:00] VITALS: BP 112/69
[2017-09-11] MEDS: FERROUS SULFATE 325MG TABLET PO SCH ×3 (09:37→16:30)
[2017-09-11] MEDS: CLOPIDOGREL 75MG TABLET PO SCH (09:37)
[2017-09-11] MEDS: FOLIC ACID 1MG TABLET PO SCH (09:37)
[2017-09-11] MEDS: FAMOTIDINE 20MG TABLET PO SCH (09:37)
[2017-09-11] MEDS: DOCUSATE SODIUM 100MG CAPSULE PO SCH ×2 (09:38→16:30)
[2017-09-11] MEDS: ENOXAPARIN 30MG/0.3ML SYR SUBCUT SCH (09:39)
[2017-09-11] MEDS: METOPROLOL TARTRATE 25MG TABLET PO SCH ×2 (09:40→21:00)
[2017-09-11] MEDS ORDERED: ERGOCALCIFEROL 50000UNITS CAPSULE PO SCH (10:00)
[2017-09-11] MEDS ORDERED: HEPARIN SODIUM 1,000 UNIT/1ML VIAL IV NR (15:00)
[2017-09-11 20:00] VITALS: BP 104/68
[2017-09-11] MEDS: POLYETHYLENE GLYCOL 3350 (17GM) 1 DOSE PACK PO SCH (21:00)
[2017-09-11] MEDS: ATORVASTATIN CALCIUM 20MG TABLET PO SCH (21:31)
[2017-09-11] MEDS: EPOETIN ALFA 10000UNITS/ML VIAL SUBCUT SCH (21:31)
[2017-09-12 08:00] VITALS: BP 117/71
[2017-09-12 08:05] LABS: HEMATOCRIT. 32.5 % (36.0-48.0); HEMOGLOBIN. 10.1 g/dL (12.0-16.0); MEAN CORPUSCULAR HEMOGLOBIN 26.5 pg (28.0-32.0); MEAN CORPUSCULAR VOLUME 84.9 fL (81.0-99.0); MEAN PLATELET VOLUME 9.5 fl (7.4-10.4); PLATELET 251 x1000/uL (130-400); RED BLOOD CELL COUNT 3.83 mill/uL (4.2-5.4); RED CELL DISTRIBUTION WIDTH 15.2 % (11.6-14.6)
[2017-09-12] MEDS: METOPROLOL TARTRATE 25MG TABLET PO SCH ×2 (08:49→21:00)
[2017-09-12] MEDS: FOLIC ACID 1MG TABLET PO SCH (08:50)
[2017-09-12] MEDS: CLOPIDOGREL 75MG TABLET PO SCH (08:50)
[2017-09-12] MEDS: DOCUSATE SODIUM 100MG CAPSULE PO SCH ×2 (08:50→18:04)
[2017-09-12] MEDS: FAMOTIDINE 20MG TABLET PO SCH (08:50)
[2017-09-12] MEDS: FERROUS SULFATE 325MG TABLET PO SCH ×3 (08:50→18:04)
[2017-09-12] MEDS: ENOXAPARIN 30MG/0.3ML SYR SUBCUT SCH (08:53)
[2017-09-12 20:00] VITALS: BP 110/65
[2017-09-12] MEDS: ATORVASTATIN CALCIUM 20MG TABLET PO SCH (21:04)
[2017-09-12] MEDS: POLYETHYLENE GLYCOL 3350 (17GM) 1 DOSE PACK PO SCH (21:04)
[2017-09-13 01:02] LABS: PLATELET ESTIMATE NORMAL
[2017-09-13 02:07] LABS: PLATELET ESTIMATE NORMAL
[2017-09-13 07:11] LABS: HEMATOCRIT. 28.8 % (36.0-48.0); HEMOGLOBIN. 9.2 g/dL (12.0-16.0); MEAN CORPUSCULAR HEMOGLOBIN 26.9 pg (28.0-32.0); MEAN CORPUSCULAR VOLUME 83.7 fL (81.0-99.0); MEAN PLATELET VOLUME 9.6 fl (7.4-10.4); PLATELET 231 x1000/uL (130-400); RED BLOOD CELL COUNT 3.44 mill/uL (4.2-5.4); RED CELL DISTRIBUTION WIDTH 14.9 % (11.6-14.6)
[2017-09-13 08:00] VITALS: BP 117/64
[2017-09-13] MEDS: FOLIC ACID 1MG TABLET PO SCH (08:56)
[2017-09-13] MEDS: DOCUSATE SODIUM 100MG CAPSULE PO SCH ×2 (08:57→17:57)
[2017-09-13] MEDS: METOPROLOL TARTRATE 25MG TABLET PO SCH ×2 (08:57→21:59)
[2017-09-13] MEDS: FERROUS SULFATE 325MG TABLET PO SCH ×3 (08:57→17:57)
[2017-09-13] MEDS: CLOPIDOGREL 75MG TABLET PO SCH (08:58)
[2017-09-13] MEDS: FAMOTIDINE 20MG TABLET PO SCH (08:58)
[2017-09-13] MEDS: ENOXAPARIN 30MG/0.3ML SYR SUBCUT SCH (09:00)
[2017-09-13] MEDS: LACTULOSE 20G/30ML UDC PO SCH ×2 (13:10→22:00)
[2017-09-13 15:33] LABS: PLATELET ESTIMATE NORMAL
[2017-09-13 20:00] VITALS: BP 124/74
[2017-09-13] MEDS: ATORVASTATIN CALCIUM 20MG TABLET PO SCH (21:59)
[2017-09-13] MEDS: POLYETHYLENE GLYCOL 3350 (17GM) 1 DOSE PACK PO SCH (22:00)
[2017-09-14] MEDS: LACTULOSE 20G/30ML UDC PO SCH ×2 (06:34→14:25)
[2017-09-14 07:02] LABS: HEMATOCRIT. 29.5 % (36.0-48.0); HEMOGLOBIN. 9.3 g/dL (12.0-16.0); MEAN CORPUSCULAR HEMOGLOBIN 26.7 pg (28.0-32.0); MEAN CORPUSCULAR VOLUME 84.3 fL (81.0-99.0); MEAN PLATELET VOLUME 9.5 fl (7.4-10.4); PLATELET 229 x1000/uL (130-400); RED BLOOD CELL COUNT 3.49 mill/uL (4.2-5.4); RED CELL DISTRIBUTION WIDTH 14.8 % (11.6-14.6)
[2017-09-14 08:00] VITALS: BP 125/82
[2017-09-14] MEDS: METOPROLOL TARTRATE 25MG TABLET PO SCH ×2 (08:45→21:00)
[2017-09-14] MEDS: DOCUSATE SODIUM 100MG CAPSULE PO SCH ×2 (09:23→17:14)
[2017-09-14] MEDS: FOLIC ACID 1MG TABLET PO SCH (09:24)
[2017-09-14] MEDS: FAMOTIDINE 20MG TABLET PO SCH (09:24)
[2017-09-14] MEDS: FERROUS SULFATE 325MG TABLET PO SCH ×3 (09:24→17:00)
[2017-09-14] MEDS: ENOXAPARIN 30MG/0.3ML SYR SUBCUT SCH (09:25)
[2017-09-14] MEDS: CLOPIDOGREL 75MG TABLET PO SCH (09:25)
[2017-09-14 10:58] LABS: PLATELET ESTIMATE NORMAL
[2017-09-14 20:00] VITALS: BP 112/67
[2017-09-15 01:00] VITALS: BP 109/64
[2017-09-15] MEDS: ATORVASTATIN CALCIUM 20MG TABLET PO SCH ×2 (01:18→21:08)
[2017-09-15] MEDS: POLYETHYLENE GLYCOL 3350 (17GM) 1 DOSE PACK PO SCH ×2 (01:18→21:09)
[2017-09-15] MEDS: EPOETIN ALFA 10000UNITS/ML VIAL SUBCUT SCH (01:21)
[2017-09-15] MEDS ORDERED: LACTULOSE 20G/30ML UDC PO SCH (01:24)
[2017-09-15] MEDS: LACTULOSE 20G/30ML UDC PO SCH ×4 (01:31→21:00)
[2017-09-15 07:02] LABS: BASOPHILS % 0.5 % (0.0-2.0); EOSINOPHILS % 2.3 % (0.0-5.0); HEMATOCRIT. 31.9 % (36.0-48.0); HEMOGLOBIN. 10.2 g/dL (12.0-16.0); LYMPHOCYTES % 25.3 % (20.0-50.0); MEAN CORPUSCULAR HEMOGLOBIN 26.7 pg (28.0-32.0); MEAN CORPUSCULAR VOLUME 83.7 fL (81.0-99.0); MEAN PLATELET VOLUME 9.4 fl (7.4-10.4); MONOCYTES % 13.6 % (2.0-8.0); NEUTROPHILS % 58.3 % (40.0-76.0); PLATELET 269 x1000/uL (130-400); RED BLOOD CELL COUNT 3.81 mill/uL (4.2-5.4); RED CELL DISTRIBUTION WIDTH 15.1 % (11.6-14.6)
[2017-09-15 08:00] VITALS: BP 107/70
[2017-09-15] MEDS: METOPROLOL TARTRATE 25MG TABLET PO SCH ×2 (09:00→21:09)
[2017-09-15] MEDS: ENOXAPARIN 30MG/0.3ML SYR SUBCUT SCH (12:28)
[2017-09-15] MEDS: CLOPIDOGREL 75MG TABLET PO SCH (12:29)
[2017-09-15] MEDS: FAMOTIDINE 20MG TABLET PO SCH (12:29)
[2017-09-15] MEDS ORDERED: SORBITOL 70% SOLN 30ML PO NR (12:30)
[2017-09-15] MEDS: FERROUS SULFATE 325MG TABLET PO SCH ×3 (12:47→18:06)
[2017-09-15] MEDS: DOCUSATE SODIUM 100MG CAPSULE PO SCH ×2 (12:47→18:05)
[2017-09-15] MEDS: FOLIC ACID 1MG TABLET PO SCH (12:47)
[2017-09-15] MEDS ORDERED: MINERAL OIL ENEMA 133ML PR NR (13:30)
[2017-09-15] MEDS: BISACODYL 10MG SUPP PR PRN (19:53)
[2017-09-15 20:00] VITALS: BP 117/71
[2017-09-16 06:36] LABS: HEMATOCRIT. 33.1 % (36.0-48.0); HEMOGLOBIN. 10.3 g/dL (12.0-16.0); MEAN CORPUSCULAR HEMOGLOBIN 26.6 pg (28.0-32.0); MEAN CORPUSCULAR VOLUME 85.3 fL (81.0-99.0); MEAN PLATELET VOLUME 9.3 fl (7.4-10.4); PLATELET 273 x1000/uL (130-400); RED BLOOD CELL COUNT 3.88 mill/uL (4.2-5.4); RED CELL DISTRIBUTION WIDTH 15.2 % (11.6-14.6)
[2017-09-16 07:19] LABS: NUCLEATED RED BLOOD CELLS 1 /100 WBC
[2017-09-16 07:21] LABS: PLATELET ESTIMATE NORMAL
[2017-09-16 08:00] VITALS: BP 95/61
[2017-09-16] MEDS: METOPROLOL TARTRATE 25MG TABLET PO SCH ×2 (09:00→20:29)
[2017-09-16] MEDS: ENOXAPARIN 30MG/0.3ML SYR SUBCUT SCH ×2 (09:00→09:21)
[2017-09-16] MEDS: DOCUSATE SODIUM 100MG CAPSULE PO SCH ×2 (09:19→17:46)
[2017-09-16] MEDS: FOLIC ACID 1MG TABLET PO SCH (09:19)
[2017-09-16] MEDS: FAMOTIDINE 20MG TABLET PO SCH (09:19)
[2017-09-16] MEDS: FERROUS SULFATE 325MG TABLET PO SCH ×3 (09:20→17:46)
[2017-09-16] MEDS: CLOPIDOGREL 75MG TABLET PO SCH (09:20)
[2017-09-16 20:00] VITALS: BP 102/54
[2017-09-16] MEDS: POLYETHYLENE GLYCOL 3350 (17GM) 1 DOSE PACK PO SCH (20:29)
[2017-09-16] MEDS: ATORVASTATIN CALCIUM 20MG TABLET PO SCH (20:29)
[2017-09-17 07:38] LABS: BASOPHILS % 0.6 % (0.0-2.0); EOSINOPHILS % 3.8 % (0.0-5.0); HEMATOCRIT. 30.8 % (36.0-48.0); HEMOGLOBIN. 9.6 g/dL (12.0-16.0); LYMPHOCYTES % 26.3 % (20.0-50.0); MEAN CORPUSCULAR HEMOGLOBIN 26.5 pg (28.0-32.0); MEAN CORPUSCULAR VOLUME 84.5 fL (81.0-99.0); MEAN PLATELET VOLUME 9.4 fl (7.4-10.4); MONOCYTES % 13.1 % (2.0-8.0); NEUTROPHILS % 56.2 % (40.0-76.0); PLATELET 231 x1000/uL (130-400); RED BLOOD CELL COUNT 3.64 mill/uL (4.2-5.4)
[2017-09-17 08:00] VITALS: BP 118/72
[2017-09-17] MEDS: CLOPIDOGREL 75MG TABLET PO SCH (08:22)
[2017-09-17] MEDS: FAMOTIDINE 20MG TABLET PO SCH (08:23)
[2017-09-17] MEDS: FERROUS SULFATE 325MG TABLET PO SCH ×2 (08:23→12:42)
[2017-09-17] MEDS: ENOXAPARIN 30MG/0.3ML SYR SUBCUT SCH (08:23)
[2017-09-17] MEDS: FOLIC ACID 1MG TABLET PO SCH (08:23)
[2017-09-17] MEDS: DOCUSATE SODIUM 100MG CAPSULE PO SCH (08:23)
[2017-09-17] MEDS: METOPROLOL TARTRATE 25MG TABLET PO SCH (08:23)
[2017-09-17 08:52] VITALS: BP 118/72
== END 2017-09-17 16:50 | disposition home health service (06) | DRG 91 ==
PROVIDERS: ADMIT Physical Medicine & Rehabilitation Spinal Cord Injury Medicine; ATTEND Internal Medicine
PROC: 5A1D70Z Performance of Urinary Filtration, Intermittent, Less than 6 Hours Per Day (ICD-10-PCS; principal; 2017-09-05)
PROC: 5A1D70Z Performance of Urinary Filtration, Intermittent, Less than 6 Hours Per Day (ICD-10-PCS; 2017-09-07)
PROC: 5A1D70Z Performance of Urinary Filtration, Intermittent, Less than 6 Hours Per Day (ICD-10-PCS; 2017-09-09)
PROC: 5A1D70Z Performance of Urinary Filtration, Intermittent, Less than 6 Hours Per Day (ICD-10-PCS; 2017-09-11)
PROC: 5A1D70Z Performance of Urinary Filtration, Intermittent, Less than 6 Hours Per Day (ICD-10-PCS; 2017-09-14)
PROC: 5A1D70Z Performance of Urinary Filtration, Intermittent, Less than 6 Hours Per Day (ICD-10-PCS; 2017-09-16)
DX: G92 Toxic encephalopathy (principal); N18.6 End stage renal disease; J96.90 Respiratory failure, unspecified, unspecified whether with hypoxia or hypercapnia; I13.2 Hypertensive heart and chronic kidney disease with heart failure and with stage 5 chronic kidney disease, or end stage renal disease; N17.9 Acute kidney failure, unspecified; E44.0 Moderate protein-calorie malnutrition; J90 Pleural effusion, not elsewhere classified; I42.9 Cardiomyopathy, unspecified; E83.39 Other disorders of phosphorus metabolism; I50.23 Acute on chronic systolic (congestive) heart failure; E87.0 Hyperosmolality and hypernatremia; E87.2 Acidosis; E87.1 Hypo-osmolality and hyponatremia; R41.4 Neurologic neglect syndrome; E78.5 Hyperlipidemia, unspecified; D72.819 Decreased white blood cell count, unspecified; R53.81 Other malaise; R29.810 Facial weakness; R26.9 Unspecified abnormalities of gait and mobility; E78.00 Pure hypercholesterolemia, unspecified; D63.8 Anemia in other chronic diseases classified elsewhere; E87.70 Fluid overload, unspecified; K59.00 Constipation, unspecified; E53.8 Deficiency of other specified B group vitamins; H53.462 Homonymous bilateral field defects, left side; E55.9 Vitamin D deficiency, unspecified; F06.31 Mood disorder due to known physiological condition with depressive features; R26.2 Difficulty in walking, not elsewhere classified; F06.8 Other specified mental disorders due to known physiological condition; Z79.02 Long term (current) use of antithrombotics/antiplatelets; Z79.899 Other long term (current) drug therapy; Z99.2 Dependence on renal dialysis; Z88.2 Allergy status to sulfonamides; Z91.14 Patient's other noncompliance with medication regimen; Z82.49 Family history of ischemic heart disease and other diseases of the circulatory system; Z68.25 Body mass index [BMI] 25.0-25.9, adult
CPT/HCPCS: 36415; 71045; 71046; 74018; 80048; 80053; 80061; 81003; 82270; 82306; 82607; 82728; 82746; 83036; 83540; 83550; 83735; 84100; 84134; 84443; 84630; 85025; 86705; 86709; 86803; 87086; 87340; 92523; 92610; 93970; 97110; 97116; 97127; 97162; 97167; 97530; 97535; G0515; J0885; J1642; J1644; J1650; J7030

== ENCOUNTER 2018-06-24 04:33 | Inpatient (IN) | payer MEDICARE, BC ==
[~2018-06-24] VITALS: Ht 162.6 cm; Wt 84.4 kg
[2018-06-24 08:08] LABS: HEMATOCRIT. 38.8 % (36.0-48.0); HEMOGLOBIN. 12.6 g/dL (12.0-16.0); MEAN CORPUSCULAR HEMOGLOBIN 29.4 pg (28.0-32.0); MEAN CORPUSCULAR VOLUME 90.8 fL (81.0-99.0); MEAN PLATELET VOLUME 9.2 fl (7.4-10.4); PLATELET 377 x1000/uL (130-400); RED BLOOD CELL COUNT 4.27 mill/uL (4.2-5.4); RED CELL DISTRIBUTION WIDTH 14.4 % (11.6-14.6)
[2018-06-24 08:33] LABS: CHLORIDE 103 mEq/L (98-107)
[2018-06-24] MEDS ORDERED: SODIUM POLYSTYRENE SULFONATE 15 G/60 ML BOT PO NR (08:45)
[2018-06-24] MEDS ORDERED: DEXTROSE 50% WATER 50ML SYRINGE IV NR ×2 (08:45)
[2018-06-24] MEDS ORDERED: CALCIUM CHLORIDE 1GM/10ML SYR IV NR (08:45)
[2018-06-24] MEDS ORDERED: SODIUM BICARBONATE 8.4% 1 MEQ/ML 50ML SYR IV NR (08:45)
[2018-06-24] MEDS ORDERED: ALBUTEROL (0.083%) 2.5MG/3ML NEB HHN NR (08:45)
[2018-06-24] MEDS ORDERED: INSULIN REGULAR (HUMULIN R) 300UNITS/3ML IV NR (08:45)
[2018-06-24 10:19] LABS: PLATELET ESTIMATE NORMAL
[2018-06-24] MEDS ORDERED: ACETAMINOPHEN 325MG TABLET PO PRN (11:00)
[2018-06-24] MEDS ORDERED: HYDROCODONE/ACETAMINOPHEN 5/325MG TABLET PO PRN (11:00)
[2018-06-24] MEDS ORDERED: CLONIDINE 0.1MG TABLET PO PRN (11:00)
[2018-06-24] MEDS ORDERED: ONDANSETRON HCL 4MG/2ML INJ IV PRN (11:00)
[2018-06-24 12:00] VITALS: BP 128/88
[2018-06-24] MEDS ORDERED: FAMO20TA8 PO (14:39)
[2018-06-24] MEDS ORDERED: ATOR20TA65 PO (14:39)
[2018-06-24] MEDS ORDERED: SEVE800T8 PO (14:39)
[2018-06-24] MEDS ORDERED: FOLI-43 PO (14:39)
[2018-06-24] MEDS ORDERED: CLOP75TA16 PO (14:39)
[2018-06-24] MEDS ORDERED: METO25TA6 PO (14:39)
[2018-06-24] MEDS ORDERED: DOCU-138 PO (14:39)
[2018-06-24] MEDS ORDERED: DEXTROSE 50% WATER 50ML SYRINGE IV PRN (14:45)
[2018-06-24 16:00] VITALS: BP 112/62
[2018-06-24 17:14] LABS: BG BASE EXCESS -1.7 mmol/L (-2.0-2.0); BG CARBOXYHEMOGLOBIN 0.6 % (0.5-1.5); BG DEOXYHEMOGLOBIN 3.3 % (0.0-5.0); BG FRACTION INSPIRED OXYGEN 34; BG HCO3 ACT 21.6 mmol/L (22.0-26.0); BG METHEMOGLOBIN 0.2 % (0.0-1.5); BG OXYGEN SATURATION 96.7 % (92.0-98.5); BG OXYHEMOGLOBIN 95.9 % (94.0-97.0); BG PH 7.447 (7.350-7.450); BG PO2 88.3 mmHg (75.0-100.0); BG SAMPLE SITE RIGHT BRACHIAL; BG TOTAL HEMOGLOBIN 12.4 g/dL (12.0-18.0); BG VENT MODE NASAL CANNULA
[2018-06-24] MEDS: BLOOD SUGAR DIAGNOSTIC STRIP TEST SCH ×2 (17:20→21:00)
[2018-06-24] MEDS: INSULIN LISPRO 100 UNITS/ML SUBCUT SCH ×2 (17:50→21:00)
[2018-06-24 19:38] LABS: HEPATITIS B SURFACE ANTIGEN NEGATIVE
[2018-06-24 20:00] VITALS: BP 125/87
[2018-06-24 21:36] LABS: VITAMIN B12 SERUM 1972 pg/mL (211-911)
[2018-06-24 21:40] LABS: FOLIC ACID (FOLATE) SERUM > 20.00 ng/mL (>5.38)
[2018-06-25 00:12] VITALS: BP 123/85
[2018-06-25 04:00] VITALS: BP 133/89
[2018-06-25 06:31] LABS: CHLORIDE 100 mEq/L (98-107)
[2018-06-25] MEDS: BLOOD SUGAR DIAGNOSTIC STRIP TEST SCH ×4 (06:35→21:00)
[2018-06-25 06:45] LABS: LDL CHOLESTEROL 54 mg/dL (5-100)
[2018-06-25 06:46] LABS: HDL CHOLESTEROL 84 mg/dL (40-59)
[2018-06-25 06:51] LABS: BASOPHILS % 0.3 % (0.0-2.0); EOSINOPHILS % 0.9 % (0.0-5.0); HEMATOCRIT. 36.3 % (36.0-48.0); HEMOGLOBIN. 11.7 g/dL (12.0-16.0); LYMPHOCYTES % 14.7 % (20.0-50.0); MEAN CORPUSCULAR VOLUME 90.2 fL (81.0-99.0); MEAN PLATELET VOLUME 8.5 fl (7.4-10.4); MONOCYTES % 11.1 % (2.0-8.0); PLATELET 349 x1000/uL (130-400); RED BLOOD CELL COUNT 4.03 mill/uL (4.2-5.4); RED CELL DISTRIBUTION WIDTH 14.2 % (11.6-14.6)
[2018-06-25] MEDS: INSULIN LISPRO 100 UNITS/ML SUBCUT SCH ×4 (07:50→21:00)
[2018-06-25 08:00] VITALS: BP 116/72
[2018-06-25] MEDS: CALCIUM CARBONATE/VITAMIN D3 500MG TABLET PO SCH ×2 (10:34→20:09)
[2018-06-25] MEDS: CLOPIDOGREL 75MG TABLET PO SCH (10:34)
[2018-06-25 12:00] VITALS: BP 113/73
[2018-06-25 12:08] LABS: ETHANOL BLOOD < 10 mg/dL
[2018-06-25 12:10] LABS: LDL CHOLESTEROL 54 mg/dL (5-100)
[2018-06-25 12:12] LABS: HDL CHOLESTEROL 85 mg/dL (40-59)
[2018-06-25 12:13] LABS: T4 FREE 0.89 ng/dL (0.76-1.46)
[2018-06-25 16:00] VITALS: BP 113/68
[2018-06-25 20:00] VITALS: BP 126/87
[2018-06-26] VITALS: BP 121/76
[2018-06-26 02:00] VITALS: BP 135/86
[2018-06-26] MEDS: BLOOD SUGAR DIAGNOSTIC STRIP TEST SCH ×4 (06:23→21:00)
[2018-06-26] MEDS: INSULIN LISPRO 100 UNITS/ML SUBCUT SCH ×4 (07:50→21:00)
[2018-06-26 08:00] VITALS: BP 106/68
[2018-06-26] MEDS: CALCIUM CARBONATE/VITAMIN D3 500MG TABLET PO SCH ×2 (08:57→16:09)
[2018-06-26] MEDS: CLOPIDOGREL 75MG TABLET PO SCH (08:57)
[2018-06-26 12:00] VITALS: BP 115/67
[2018-06-26 12:56] LABS: BASOPHILS % 0.4 % (0.0-2.0); EOSINOPHILS % 0.3 % (0.0-5.0); HEMATOCRIT. 36.4 % (36.0-48.0); HEMOGLOBIN. 11.6 g/dL (12.0-16.0); LYMPHOCYTES % 13.2 % (20.0-50.0); MEAN CORPUSCULAR HEMOGLOBIN 29.1 pg (28.0-32.0); MEAN CORPUSCULAR VOLUME 90.9 fL (81.0-99.0); MEAN PLATELET VOLUME 8.2 fl (7.4-10.4); MONOCYTES % 9.9 % (2.0-8.0); NEUTROPHILS % 76.2 % (40.0-76.0); PLATELET 351 x1000/uL (130-400); RED CELL DISTRIBUTION WIDTH 14.3 % (11.6-14.6)
[2018-06-26 16:00] VITALS: BP 119/66
[2018-06-26] MEDS: ALPRAZOLAM 0.25 MG TABLET PO PRN (16:09)
[2018-06-26 20:19] VITALS: BP 116/70
[2018-06-27 00:25] VITALS: BP 132/89
[2018-06-27] MEDS: ALPRAZOLAM 0.25 MG TABLET PO PRN ×3 (00:41→19:32)
[2018-06-27 04:00] VITALS: BP 121/83
[2018-06-27 07:06] LABS: HEMOGLOBIN. 11.5 g/dL (12.0-16.0); MEAN CORPUSCULAR HEMOGLOBIN 28.9 pg (28.0-32.0); MEAN CORPUSCULAR VOLUME 90.7 fL (81.0-99.0); MEAN PLATELET VOLUME 8.4 fl (7.4-10.4); PLATELET 302 x1000/uL (130-400); RED BLOOD CELL COUNT 3.97 mill/uL (4.2-5.4); RED CELL DISTRIBUTION WIDTH 14.3 % (11.6-14.6)
[2018-06-27] MEDS: BLOOD SUGAR DIAGNOSTIC STRIP TEST SCH ×4 (07:20→21:00)
[2018-06-27] MEDS: INSULIN LISPRO 100 UNITS/ML SUBCUT SCH ×4 (07:50→21:00)
[2018-06-27 08:00] VITALS: BP 104/65
[2018-06-27] MEDS: CLOPIDOGREL 75MG TABLET PO SCH (08:43)
[2018-06-27] MEDS: CALCIUM CARBONATE/VITAMIN D3 500MG TABLET PO SCH ×2 (08:43→18:20)
[2018-06-27 12:00] VITALS: BP 94/61
[2018-06-27 16:00] VITALS: BP 103/63
[2018-06-27 17:27] LABS: PLATELET ESTIMATE NORMAL
[2018-06-27 20:00] VITALS: BP 106/68
[2018-06-28] VITALS (7 sets, daily range): BP systolic 19–114; BP diastolic 60–97
[2018-06-28] MEDS: BLOOD SUGAR DIAGNOSTIC STRIP TEST SCH ×3 (07:20→18:18)
[2018-06-28 07:28] LABS: HEMATOCRIT. 36.6 % (36.0-48.0); HEMOGLOBIN. 11.6 g/dL (12.0-16.0); MEAN CORPUSCULAR HEMOGLOBIN 29.1 pg (28.0-32.0); MEAN CORPUSCULAR VOLUME 91.7 fL (81.0-99.0); MEAN PLATELET VOLUME 8.9 fl (7.4-10.4); PLATELET 286 x1000/uL (130-400); RED CELL DISTRIBUTION WIDTH 14.7 % (11.6-14.6)
[2018-06-28] MEDS: INSULIN LISPRO 100 UNITS/ML SUBCUT SCH ×3 (07:50→17:50)
[2018-06-28] MEDS: CALCIUM CARBONATE/VITAMIN D3 500MG TABLET PO SCH ×2 (09:36→18:16)
[2018-06-28] MEDS: CLOPIDOGREL 75MG TABLET PO SCH (09:36)
[2018-06-28 13:29] LABS: PLATELET ESTIMATE NORMAL
[2018-06-30 04:13] LABS: BARBITURATE SCREEN Negative ug/mL (Cutoff:0.1); BENZODIAZEPINE SCREEN Negative ng/mL (Cutoff:20); OPIATES SCREEN Negative ng/mL (Cutoff:5); PHENCYCLIDINE SCREEN Negative ng/mL (Cutoff:8)
== END 2018-06-28 19:18 | DRG 91 ==
LOC: ER 04:33 → ENRESERV 09:56 → 6WST 10:43 → EDBEDREQ 10:48
PROVIDERS: ADMIT Internal Medicine; ATTEND Internal Medicine
PROC: 5A1D70Z Performance of Urinary Filtration, Intermittent, Less than 6 Hours Per Day (ICD-10-PCS; 2018-06-24)
PROC: 5A1D70Z Performance of Urinary Filtration, Intermittent, Less than 6 Hours Per Day (ICD-10-PCS; 2018-06-27)
PROC: 5A1D70Z Performance of Urinary Filtration, Intermittent, Less than 6 Hours Per Day (ICD-10-PCS; principal; 2018-06-28)
DX: G92 Toxic encephalopathy (principal); N18.6 End stage renal disease; I12.0 Hypertensive chronic kidney disease with stage 5 chronic kidney disease or end stage renal disease; E44.0 Moderate protein-calorie malnutrition; I13.2 Hypertensive heart and chronic kidney disease with heart failure and with stage 5 chronic kidney disease, or end stage renal disease; I69.354 Hemiplegia and hemiparesis following cerebral infarction affecting left non-dominant side; I42.9 Cardiomyopathy, unspecified; G90.8 Other disorders of autonomic nervous system; E87.5 Hyperkalemia; E11.22 Type 2 diabetes mellitus with diabetic chronic kidney disease; F41.9 Anxiety disorder, unspecified; I50.9 Heart failure, unspecified; E78.00 Pure hypercholesterolemia, unspecified; E66.9 Obesity, unspecified; E83.51 Hypocalcemia; Z99.2 Dependence on renal dialysis; D64.9 Anemia, unspecified; E11.65 Type 2 diabetes mellitus with hyperglycemia; E78.5 Hyperlipidemia, unspecified; F32.9 Major depressive disorder, single episode, unspecified; R13.10 Dysphagia, unspecified; Z79.02 Long term (current) use of antithrombotics/antiplatelets; Z88.2 Allergy status to sulfonamides; Z71.3 Dietary counseling and surveillance; Z68.31 Body mass index [BMI] 31.0-31.9, adult
CPT/HCPCS: 36415; 36600; 70544; 70553; 71045; 74176; 80048; 80061; 80307; 82140; 82375; 82607; 82746; 82805; 82962; 83036; 83735; 84100; 84439; 84443; 84481; 92610; 93005; 93970; 96374; 96375; 97163; 97166; 97530; 97535; 99291; C1893; J1815; J3490

== ENCOUNTER 2018-06-28 19:15 | Inpatient (IN) | payer MEDICARE, BC ==
[~2018-06-28] VITALS: Ht 162.6 cm; Wt 80.3 kg
[2018-06-28 19:15] VITALS: BP 119/71
[~2018-06-28 19:15] MED LIST changes: -AMLO10TA80 PO; +ATOR20TA65 PO; +CLOP75TA16 PO; +DOCU-138 PO; +FAMO20TA8 PO; +FOLI-43 PO; -FURO40TA5 PO; +METO25TA6 PO; +SEVE800T8 PO
[2018-06-28 20:00] VITALS: BP 119/71
[2018-06-29] MEDS ORDERED: CLONIDINE 0.1MG TABLET PO PRN (01:30)
[2018-06-29] MEDS ORDERED: ACETAMINOPHEN 325MG TABLET PO PRN (01:30)
[2018-06-29] MEDS ORDERED: ONDANSETRON HCL 4MG TABLET PO PRN (01:30)
[2018-06-29] MEDS ORDERED: HYDROCODONE/ACETAMINOPHEN 5/325MG TABLET PO PRN (01:30)
[2018-06-29] MEDS ORDERED: DEXTROSE 50% WATER 50ML SYRINGE IV PRN (01:45)
[2018-06-29] MEDS: BLOOD SUGAR DIAGNOSTIC STRIP TEST SCH ×4 (06:30→21:00)
[2018-06-29 07:51] LABS: HEMATOCRIT. 35.3 % (36.0-48.0); HEMOGLOBIN. 11.2 g/dL (12.0-16.0); MEAN CORPUSCULAR VOLUME 91.4 fL (81.0-99.0); MEAN PLATELET VOLUME 8.6 fl (7.4-10.4); PLATELET 294 x1000/uL (130-400); RED BLOOD CELL COUNT 3.86 mill/uL (4.2-5.4); RED CELL DISTRIBUTION WIDTH 14.5 % (11.6-14.6)
[2018-06-29 08:05] LABS: CHLORIDE 100 mEq/L (98-107)
[2018-06-29 08:06] VITALS: BP 106/67
[2018-06-29] MEDS: INSULIN LISPRO 100 UNITS/ML SUBCUT SCH ×4 (08:16→21:00)
[2018-06-29] MEDS: CALCIUM CARBONATE/VITAMIN D3 500MG TABLET PO SCH ×2 (08:54→17:00)
[2018-06-29] MEDS: CLOPIDOGREL 75MG TABLET PO SCH (08:54)
[2018-06-29] MEDS: DOCUSATE SODIUM 100MG CAPSULE PO SCH (17:00)
[2018-06-29 20:00] VITALS: BP 119/77
[2018-06-29 20:26] LABS: PLATELET ESTIMATE NORMAL
[2018-06-29] MEDS: POLYETHYLENE GLYCOL 3350 (17GM) 1 DOSE PACK PO SCH (22:07)
[2018-06-29] MEDS: ALPRAZOLAM 0.25 MG TABLET PO PRN (22:08)
[2018-06-30] MEDS: INSULIN LISPRO 100 UNITS/ML SUBCUT SCH ×4 (06:13→20:41)
[2018-06-30] MEDS: BLOOD SUGAR DIAGNOSTIC STRIP TEST SCH ×4 (06:13→20:41)
[2018-06-30] MEDS: PANTOPRAZOLE 40MG DR TABLET PO SCH (06:13)
[2018-06-30] MEDS: ALPRAZOLAM 0.25 MG TABLET PO PRN ×2 (06:31→22:11)
[2018-06-30 07:06] LABS: HEMATOCRIT. 35.8 % (36.0-48.0); HEMOGLOBIN. 11.6 g/dL (12.0-16.0); MEAN CORPUSCULAR HEMOGLOBIN 29.4 pg (28.0-32.0); MEAN CORPUSCULAR VOLUME 90.4 fL (81.0-99.0); MEAN PLATELET VOLUME 8.5 fl (7.4-10.4); PLATELET 303 x1000/uL (130-400); RED BLOOD CELL COUNT 3.96 mill/uL (4.2-5.4); RED CELL DISTRIBUTION WIDTH 14.3 % (11.6-14.6)
[2018-06-30 08:11] VITALS: BP 118/67
[2018-06-30] MEDS: DOCUSATE SODIUM 100MG CAPSULE PO SCH ×2 (08:26→18:58)
[2018-06-30] MEDS: CLOPIDOGREL 75MG TABLET PO SCH (08:26)
[2018-06-30] MEDS: CALCIUM CARBONATE/VITAMIN D3 500MG TABLET PO SCH ×2 (08:26→19:00)
[2018-06-30 13:31] LABS: PLATELET ESTIMATE NORMAL
[2018-06-30] MEDS ORDERED: LACTULOSE 20G/30ML UDC PO NR (14:00)
[2018-06-30] MEDS: POLYETHYLENE GLYCOL 3350 (17GM) 1 DOSE PACK PO SCH (20:37)
[2018-06-30 20:45] VITALS: BP 117/88
[2018-07-01] MEDS: PANTOPRAZOLE 40MG DR TABLET PO SCH (06:33)
[2018-07-01] MEDS: BLOOD SUGAR DIAGNOSTIC STRIP TEST SCH ×4 (06:37→21:05)
[2018-07-01] MEDS: INSULIN LISPRO 100 UNITS/ML SUBCUT SCH ×4 (06:37→21:00)
[2018-07-01 07:00] VITALS: BP 118/79
[2018-07-01] MEDS: CLOPIDOGREL 75MG TABLET PO SCH (08:35)
[2018-07-01] MEDS: CALCIUM CARBONATE/VITAMIN D3 500MG TABLET PO SCH ×2 (08:35→16:38)
[2018-07-01] MEDS: DOCUSATE SODIUM 100MG CAPSULE PO SCH ×2 (08:36→16:38)
[2018-07-01 14:24] LABS: BASOPHILS % 0.2 % (0.0-2.0); EOSINOPHILS % 2.1 % (0.0-5.0); HEMATOCRIT. 34.3 % (36.0-48.0); HEMOGLOBIN. 10.8 g/dL (12.0-16.0); LYMPHOCYTES % 26.9 % (20.0-50.0); MEAN CORPUSCULAR HEMOGLOBIN 28.8 pg (28.0-32.0); MEAN CORPUSCULAR VOLUME 91.7 fL (81.0-99.0); MEAN PLATELET VOLUME 8.8 fl (7.4-10.4); MONOCYTES % 14.3 % (2.0-8.0); NEUTROPHILS % 56.5 % (40.0-76.0); PLATELET 297 x1000/uL (130-400); RED BLOOD CELL COUNT 3.74 mill/uL (4.2-5.4); RED CELL DISTRIBUTION WIDTH 14.4 % (11.6-14.6)
[2018-07-01 14:30] LABS: PHOSPHORUS 4.8 mg/dL (2.5-4.9)
[2018-07-01 14:43] LABS: FOLIC ACID (FOLATE) SERUM >20 ng/mL ng/mL (>5.38)
[2018-07-01 14:54] LABS: VITAMIN B12 SERUM 1722 pg/mL (211-911)
[2018-07-01 15:17] LABS: FERRITIN 698 ng/mL (10-291)
[2018-07-01] MEDS: ENOXAPARIN 30MG/0.3ML SYR SUBCUT SCH (16:39)
[2018-07-01 20:00] VITALS: BP 108/63
[2018-07-01] MEDS: POLYETHYLENE GLYCOL 3350 (17GM) 1 DOSE PACK PO SCH (21:05)
[2018-07-02] MEDS: INSULIN LISPRO 100 UNITS/ML SUBCUT SCH ×4 (05:59→20:45)
[2018-07-02] MEDS: BLOOD SUGAR DIAGNOSTIC STRIP TEST SCH ×4 (05:59→20:45)
[2018-07-02 06:53] LABS: HEMATOCRIT. 36.1 % (36.0-48.0); HEMOGLOBIN. 11.4 g/dL (12.0-16.0); MEAN CORPUSCULAR HEMOGLOBIN 28.9 pg (28.0-32.0); MEAN CORPUSCULAR VOLUME 91.5 fL (81.0-99.0); PLATELET 275 x1000/uL (130-400); RED BLOOD CELL COUNT 3.95 mill/uL (4.2-5.4); RED CELL DISTRIBUTION WIDTH 14.5 % (11.6-14.6)
[2018-07-02 07:59] VITALS: BP 126/75
[2018-07-02] MEDS: DOCUSATE SODIUM 100MG CAPSULE PO SCH ×2 (08:17→17:08)
[2018-07-02] MEDS: CALCIUM CARBONATE/VITAMIN D3 500MG TABLET PO SCH ×2 (08:17→17:08)
[2018-07-02] MEDS: CLOPIDOGREL 75MG TABLET PO SCH (08:17)
[2018-07-02] MEDS: FAMOTIDINE 20MG TABLET PO SCH (08:17)
[2018-07-02 13:47] LABS: PLATELET ESTIMATE NORMAL
[2018-07-02] MEDS: BISACODYL 5MG TABLET PO PRN (17:08)
[2018-07-02] MEDS: ENOXAPARIN 30MG/0.3ML SYR SUBCUT SCH (17:09)
[2018-07-02 20:00] VITALS: BP 119/76
[2018-07-02] MEDS: POLYETHYLENE GLYCOL 3350 (17GM) 1 DOSE PACK PO SCH (20:45)
[2018-07-02] MEDS: ALPRAZOLAM 0.25 MG TABLET PO PRN (22:00)
[2018-07-03] MEDS: BLOOD SUGAR DIAGNOSTIC STRIP TEST SCH ×4 (05:45→21:00)
[2018-07-03] MEDS: INSULIN LISPRO 100 UNITS/ML SUBCUT SCH ×4 (05:46→21:00)
[2018-07-03] MEDS: BISACODYL 5MG TABLET PO PRN (05:46)
[2018-07-03 08:00] VITALS: BP 141/78
[2018-07-03] MEDS: CALCIUM CARBONATE/VITAMIN D3 500MG TABLET PO SCH ×2 (09:24→19:29)
[2018-07-03] MEDS: FAMOTIDINE 20MG TABLET PO SCH (09:24)
[2018-07-03] MEDS: CLOPIDOGREL 75MG TABLET PO SCH (09:24)
[2018-07-03] MEDS: DOCUSATE SODIUM 100MG CAPSULE PO SCH ×2 (09:25→19:29)
[2018-07-03] MEDS: DEXT 5%/0.45% NACL 1000ML 1,000 ML IV SCH (13:15)
[2018-07-03] MEDS: ENOXAPARIN 30MG/0.3ML SYR SUBCUT SCH (19:29)
[2018-07-03 20:00] VITALS: BP 115/78
[2018-07-03] MEDS: POLYETHYLENE GLYCOL 3350 (17GM) 1 DOSE PACK PO SCH (22:43)
[2018-07-03] MEDS: ALPRAZOLAM 0.25 MG TABLET PO PRN (22:44)
[2018-07-04] MEDS: DEXT 5%/0.45% NACL 1000ML 1,000 ML IV SCH ×3 (02:35→19:55)
[2018-07-04 06:01] LABS: HEMATOCRIT. 34.3 % (36.0-48.0); MEAN CORPUSCULAR HEMOGLOBIN 29.2 pg (28.0-32.0); MEAN CORPUSCULAR VOLUME 91.5 fL (81.0-99.0); PLATELET 229 x1000/uL (130-400); RED BLOOD CELL COUNT 3.75 mill/uL (4.2-5.4); RED CELL DISTRIBUTION WIDTH 14.5 % (11.6-14.6)
[2018-07-04] MEDS: BLOOD SUGAR DIAGNOSTIC STRIP TEST SCH ×4 (06:24→21:00)
[2018-07-04] MEDS: INSULIN LISPRO 100 UNITS/ML SUBCUT SCH ×4 (06:25→21:00)
[2018-07-04 08:00] VITALS: BP 117/55
[2018-07-04] MEDS: CLOPIDOGREL 75MG TABLET PO SCH (09:22)
[2018-07-04] MEDS: FAMOTIDINE 20MG TABLET PO SCH (09:22)
[2018-07-04] MEDS: DOCUSATE SODIUM 100MG CAPSULE PO SCH ×2 (09:22→17:33)
[2018-07-04] MEDS: CALCIUM CARBONATE/VITAMIN D3 500MG TABLET PO SCH ×2 (09:22→17:32)
[2018-07-04] MEDS: ENOXAPARIN 30MG/0.3ML SYR SUBCUT SCH (17:36)
[2018-07-04 20:00] VITALS: BP 127/88
[2018-07-04] MEDS: POLYETHYLENE GLYCOL 3350 (17GM) 1 DOSE PACK PO SCH (21:00)
[2018-07-04] MEDS: ALPRAZOLAM 0.25 MG TABLET PO PRN (21:05)
[2018-07-04 21:51] LABS: PLATELET ESTIMATE NORMAL
[2018-07-05] MEDS: INSULIN LISPRO 100 UNITS/ML SUBCUT SCH ×4 (06:02→21:00)
[2018-07-05] MEDS: BLOOD SUGAR DIAGNOSTIC STRIP TEST SCH ×4 (06:02→21:02)
[2018-07-05] MEDS: ALPRAZOLAM 0.25 MG TABLET PO PRN ×2 (06:03→18:48)
[2018-07-05 08:04] VITALS: BP 124/73
[2018-07-05] MEDS: CLOPIDOGREL 75MG TABLET PO SCH (09:02)
[2018-07-05] MEDS: DOCUSATE SODIUM 100MG CAPSULE PO SCH ×2 (09:02→16:24)
[2018-07-05] MEDS: CALCIUM CARBONATE/VITAMIN D3 500MG TABLET PO SCH ×2 (09:03→16:24)
[2018-07-05] MEDS: DEXT 5%/0.45% NACL 1000ML 1,000 ML IV SCH (11:27)
[2018-07-05] MEDS: ENOXAPARIN 30MG/0.3ML SYR SUBCUT SCH (16:24)
[2018-07-05 17:47] LABS: HEMATOCRIT. 32.3 % (36.0-48.0); HEMOGLOBIN. 10.1 g/dL (12.0-16.0); MEAN CORPUSCULAR HEMOGLOBIN 28.9 pg (28.0-32.0); MEAN CORPUSCULAR VOLUME 92.1 fL (81.0-99.0); PLATELET 221 x1000/uL (130-400); RED BLOOD CELL COUNT 3.51 mill/uL (4.2-5.4); RED CELL DISTRIBUTION WIDTH 14.5 % (11.6-14.6)
[2018-07-05 17:59] LABS: PHOSPHORUS 2.9 mg/dL (2.5-4.9)
[2018-07-05 18:28] LABS: PLATELET ESTIMATE NORMAL
[2018-07-05 20:00] VITALS: BP 117/68
[2018-07-05] MEDS: POLYETHYLENE GLYCOL 3350 (17GM) 1 DOSE PACK PO SCH (21:02)
[2018-07-06] MEDS: BLOOD SUGAR DIAGNOSTIC STRIP TEST SCH ×4 (06:21→21:04)
[2018-07-06] MEDS: INSULIN LISPRO 100 UNITS/ML SUBCUT SCH ×4 (06:29→21:00)
[2018-07-06 07:06] LABS: HEMOGLOBIN. 9.9 g/dL (12.0-16.0); MEAN CORPUSCULAR VOLUME 91.2 fL (81.0-99.0); MEAN PLATELET VOLUME 8.9 fl (7.4-10.4); PLATELET 217 x1000/uL (130-400); RED CELL DISTRIBUTION WIDTH 14.2 % (11.6-14.6)
[2018-07-06 07:14] LABS: LUTEINIZING HORMONE 112.5 mIU/mL (.)
[2018-07-06 08:00] VITALS: BP 142/61
[2018-07-06] MEDS: CALCIUM CARBONATE/VITAMIN D3 500MG TABLET PO SCH ×2 (09:08→17:48)
[2018-07-06] MEDS: DOCUSATE SODIUM 100MG CAPSULE PO SCH ×2 (09:08→17:48)
[2018-07-06] MEDS: CLOPIDOGREL 75MG TABLET PO SCH (09:08)
[2018-07-06 11:17] LABS: PLATELET ESTIMATE NORMAL
[2018-07-06 13:11] LABS: C-PEPTIDE 8.3 ng/mL (1.1-4.4); INSULIN 8.1 uIU/mL (2.6-24.9)
[2018-07-06] MEDS: ENOXAPARIN 30MG/0.3ML SYR SUBCUT SCH (17:00)
[2018-07-06 20:00] VITALS: BP 152/81
[2018-07-06] MEDS: POLYETHYLENE GLYCOL 3350 (17GM) 1 DOSE PACK PO SCH (21:08)
[2018-07-06 21:30] VITALS: BP 130/70
[2018-07-06] MEDS: ALPRAZOLAM 0.25 MG TABLET PO PRN (21:33)
[2018-07-07 04:16] LABS: 25-HYDROXY VITAMIN D3 19 ng/mL (.)
[2018-07-07] MEDS: INSULIN LISPRO 100 UNITS/ML SUBCUT SCH ×4 (06:01→20:30)
[2018-07-07] MEDS: BLOOD SUGAR DIAGNOSTIC STRIP TEST SCH ×4 (06:01→20:34)
[2018-07-07] MEDS: ALPRAZOLAM 0.25 MG TABLET PO PRN ×2 (06:04→21:15)
[2018-07-07] MEDS: CLOPIDOGREL 75MG TABLET PO SCH (08:10)
[2018-07-07] MEDS: DOCUSATE SODIUM 100MG CAPSULE PO SCH ×2 (08:10→16:12)
[2018-07-07] MEDS: CALCIUM CARBONATE/VITAMIN D3 500MG TABLET PO SCH ×2 (08:10→16:12)
[2018-07-07 08:29] VITALS: BP 131/86
[2018-07-07] MEDS ORDERED: ERGOCALCIFEROL 50000UNITS CAPSULE PO SCH (14:30)
[2018-07-07] MEDS: ENOXAPARIN 30MG/0.3ML SYR SUBCUT SCH (16:14)
[2018-07-07 20:00] VITALS: BP 148/91
[2018-07-07] MEDS: POLYETHYLENE GLYCOL 3350 (17GM) 1 DOSE PACK PO SCH (20:29)
[2018-07-07] MEDS: BISACODYL 5MG TABLET PO PRN (20:30)
[2018-07-08] MEDS: BLOOD SUGAR DIAGNOSTIC STRIP TEST SCH ×3 (06:30→16:03)
[2018-07-08 08:00] VITALS: BP 147/105
[2018-07-08] MEDS: INSULIN LISPRO 100 UNITS/ML SUBCUT SCH ×3 (08:27→16:02)
[2018-07-08] MEDS: CLOPIDOGREL 75MG TABLET PO SCH (09:20)
[2018-07-08] MEDS: BISACODYL 5MG TABLET PO PRN (09:20)
[2018-07-08] MEDS: DOCUSATE SODIUM 100MG CAPSULE PO SCH ×2 (09:20→16:02)
[2018-07-08] MEDS: CALCIUM CARBONATE/VITAMIN D3 500MG TABLET PO SCH ×2 (09:20→16:02)
[2018-07-08 10:27] VITALS: BP 146/99
[2018-07-08] MEDS: ENOXAPARIN 30MG/0.3ML SYR SUBCUT SCH (16:03)
[2018-07-08 18:01] LABS: BASOPHILS % 0.4 % (0.0-2.0); EOSINOPHILS % 1.3 % (0.0-5.0); HEMATOCRIT. 36.2 % (36.0-48.0); HEMOGLOBIN. 11.8 g/dL (12.0-16.0); LYMPHOCYTES % 14.5 % (20.0-50.0); MEAN CORPUSCULAR HEMOGLOBIN 29.6 pg (28.0-32.0); MEAN PLATELET VOLUME 9.2 fl (7.4-10.4); MONOCYTES % 13.5 % (2.0-8.0); NEUTROPHILS % 70.3 % (40.0-76.0); PLATELET 269 x1000/uL (130-400); RED BLOOD CELL COUNT 3.98 mill/uL (4.2-5.4); RED CELL DISTRIBUTION WIDTH 14.6 % (11.6-14.6)
[2018-07-08 20:00] VITALS: BP 130/94
[2018-07-08] MEDS: POLYETHYLENE GLYCOL 3350 (17GM) 1 DOSE PACK PO SCH (20:43)
[2018-07-08] MEDS: ALPRAZOLAM 0.25 MG TABLET PO PRN (20:43)
[2018-07-09] MEDS: BISACODYL 5MG TABLET PO PRN (06:30)
[2018-07-09 08:00] VITALS: BP 130/87
[2018-07-09] MEDS ORDERED: INSULIN LISPRO 100 UNITS/ML SUBCUT SCH (09:00)
[2018-07-09] MEDS: DOCUSATE SODIUM 100MG CAPSULE PO SCH (09:00)
[2018-07-09] MEDS: CALCIUM CARBONATE/VITAMIN D3 500MG TABLET PO SCH (09:00)
[2018-07-09] MEDS: CLOPIDOGREL 75MG TABLET PO SCH (09:00)
[2018-07-09] MEDS ORDERED: BLOOD SUGAR DIAGNOSTIC STRIP TEST SCH (09:00)
[2018-07-09 09:45] VITALS: BP 130/87
== END 2018-07-09 14:51 | disposition home health service (06) | DRG 91 ==
PROVIDERS: ADMIT Physical Medicine & Rehabilitation Spinal Cord Injury Medicine; ATTEND Internal Medicine
DX: G92 Toxic encephalopathy (principal); N18.6 End stage renal disease; I69.354 Hemiplegia and hemiparesis following cerebral infarction affecting left non-dominant side; R41.4 Neurologic neglect syndrome; I13.2 Hypertensive heart and chronic kidney disease with heart failure and with stage 5 chronic kidney disease, or end stage renal disease; I42.9 Cardiomyopathy, unspecified; E44.0 Moderate protein-calorie malnutrition; R47.01 Aphasia; H53.462 Homonymous bilateral field defects, left side; E11.22 Type 2 diabetes mellitus with diabetic chronic kidney disease; Z99.2 Dependence on renal dialysis; E78.00 Pure hypercholesterolemia, unspecified; D64.9 Anemia, unspecified; I50.9 Heart failure, unspecified; F32.9 Major depressive disorder, single episode, unspecified; F41.9 Anxiety disorder, unspecified; E87.5 Hyperkalemia; E66.9 Obesity, unspecified
CPT/HCPCS: 36415; 80048; 82140; 82306; 82533; 82607; 82670; 82728; 82746; 82947; 82962; 83002; 83525; 83540; 83550; 83735; 84100; 84134; 84443; 84681; 92523; 92610; 93970; 97110; 97112; 97116; 97162; 97166; 97530; 97535; A6261; C1893; G0515; J1650

== ENCOUNTER 2019-09-15 22:25 | Inpatient (IN) | payer MEDICARE, BC ==
[~2019-09-15] VITALS: Ht 162.6 cm; Wt 86.7 kg
[~2019-09-15 22:25] MED LIST changes: -ATOR20TA65 PO; -CLOP75TA16 PO; +CLOP75TA4 PO; -DOCU-138 PO; -FAMO20TA8 PO; -METO25TA6 PO
[2019-09-15 22:30] VITALS: BP 152/94
[2019-09-15 23:00] VITALS: BP 152/97
[2019-09-16] MEDS ORDERED: DOCUSATE SODIUM 100MG CAPSULE PO PRN (00:15)
[2019-09-16] MEDS ORDERED: NITROGLYCERIN 0.4MG TABLET SL SL PRN (00:15)
[2019-09-16] MEDS ORDERED: ACETAMINOPHEN 325MG TABLET PO PRN (00:15)
[2019-09-16] MEDS ORDERED: GUAIFENESIN 200MG/10ML SUGAR FREE UDC PO PRN (00:15)
[2019-09-16] MEDS ORDERED: DIPHENHYDRAMINE 50MG/ML VIAL IV PRN (00:15)
[2019-09-16] MEDS ORDERED: ONDANSETRON HCL 4MG/2ML INJ IV PRN (00:15)
[2019-09-16] MEDS ORDERED: MAGNESIUM/ALUMINUM HYDROXIDE/SIMETHICONE 30ML UDC PO PRN (00:15)
[2019-09-16] MEDS ORDERED: IPRATROPIUM/ALBUTEROL 0.5-3(2.5)MG/3ML NEB HHN PRN (00:15)
[2019-09-16] MEDS ORDERED: CLONIDINE 0.1MG TABLET PO PRN (00:15)
[2019-09-16] MEDS: IPRATROPIUM/ALBUTEROL 0.5-3(2.5)MG/3ML NEB HHN SCH (01:54)
[2019-09-16 06:11] LABS: BASOPHILS % 0.4 % (0.0-2.0); EOSINOPHILS % 1.5 % (0.0-5.0); HEMATOCRIT. 29.8 % (36.0-48.0); HEMOGLOBIN. 9.9 g/dL (12.0-16.0); LYMPHOCYTES % 14.6 % (20.0-50.0); MEAN CORPUSCULAR HEMOGLOBIN 28.4 pg (28.0-32.0); MEAN CORPUSCULAR VOLUME 85.5 fL (81.0-99.0); MEAN PLATELET VOLUME 8.4 fl (7.4-10.4); MONOCYTES % 7.1 % (2.0-8.0); NEUTROPHILS % 76.4 % (40.0-76.0); PLATELET 410 x1000/uL (130-400); RED BLOOD CELL COUNT 3.48 mill/uL (4.2-5.4); RED CELL DISTRIBUTION WIDTH 15.7 % (11.6-14.6)
[2019-09-16 06:17] LABS: CHLORIDE 100 mEq/L (98-107)
[2019-09-16 08:21] VITALS: BP 143/68
[2019-09-16] MEDS: SEVELAMER CARBONATE 800 MG TABLET PO SCH ×3 (10:08→18:23)
[2019-09-16] MEDS: ASCORBIC ACID 500 MG TABLET PO SCH ×2 (10:09→20:16)
[2019-09-16] MEDS: FOLIC ACID/VITAMIN B COMP W-C TABLET PO SCH (10:09)
[2019-09-16] MEDS: GUAIFENESIN 600MG ER TABLET PO SCH ×2 (10:09→20:16)
[2019-09-16] MEDS: CLOPIDOGREL 75MG TABLET PO SCH (10:09)
[2019-09-16] MEDS: ENOXAPARIN 30MG/0.3ML SYR SUBCUT SCH (10:09)
[2019-09-16] MEDS: ZINC SULFATE 220 MG ( 50 ) CAPSULE PO SCH (10:09)
[2019-09-16] MEDS ORDERED: POTASSIUM CHLORIDE 20MEQ/PACKET PO SCH (11:30)
[2019-09-16] MEDS: CEFAZOLIN 2,000 MG in DEXT 5% WATER 100 ML IV SCH (15:17)
[2019-09-16] MEDS: LIDOCAINE 5% PATCH TOP SCH (17:00)
[2019-09-16] MEDS: METHYL SALICYLATE/MENTHOL CREAM 85GM TOP SCH ×2 (18:27→23:42)
[2019-09-16] MEDS ORDERED: NA PHOS,M-B/NA PHOS,DI-BA ENEMA 118ML PR NR (19:30)
[2019-09-16 20:00] VITALS: BP 139/85
[2019-09-16] MEDS: FAMOTIDINE 20MG TABLET PO SCH (20:16)
[2019-09-17] MEDS: METHYL SALICYLATE/MENTHOL CREAM 85GM TOP SCH ×3 (05:08→18:16)
[2019-09-17 08:11] VITALS: BP 117/65
[2019-09-17] MEDS: ENOXAPARIN 30MG/0.3ML SYR SUBCUT SCH (08:53)
[2019-09-17] MEDS: ZINC SULFATE 220 MG ( 50 ) CAPSULE PO SCH (08:54)
[2019-09-17] MEDS: SEVELAMER CARBONATE 800 MG TABLET PO SCH ×3 (08:54→16:18)
[2019-09-17] MEDS: GUAIFENESIN 600MG ER TABLET PO SCH ×2 (08:54→22:00)
[2019-09-17] MEDS: CLOPIDOGREL 75MG TABLET PO SCH (08:54)
[2019-09-17] MEDS: ASCORBIC ACID 500 MG TABLET PO SCH ×2 (08:54→22:00)
[2019-09-17] MEDS: FOLIC ACID/VITAMIN B COMP W-C TABLET PO SCH (08:54)
[2019-09-17] MEDS: LIDOCAINE 5% PATCH TOP SCH (09:00)
[2019-09-17] MEDS: IPRATROPIUM/ALBUTEROL 0.5-3(2.5)MG/3ML NEB HHN SCH ×2 (10:07→16:27)
[2019-09-17] MEDS: CEFAZOLIN 2,000 MG in DEXT 5% WATER 100 ML IV SCH (16:18)
[2019-09-17 20:00] VITALS: BP 157/80
[2019-09-17] MEDS: FAMOTIDINE 20MG TABLET PO SCH (22:00)
[2019-09-18] MEDS: IPRATROPIUM/ALBUTEROL 0.5-3(2.5)MG/3ML NEB HHN SCH ×2 (02:55→15:40)
[2019-09-18] MEDS: METHYL SALICYLATE/MENTHOL CREAM 85GM TOP SCH ×4 (06:26→17:20)
[2019-09-18 06:43] LABS: CHLORIDE 100 mEq/L (98-107)
[2019-09-18 06:49] LABS: PHOSPHORUS 4.4 mg/dL (2.5-4.9)
[2019-09-18 06:50] LABS: TOTAL IRON BINDING CAPACITY 171 ug/dL (250-450)
[2019-09-18 06:56] LABS: BASOPHILS % 0.6 % (0.0-2.0); EOSINOPHILS % 1.8 % (0.0-5.0); HEMATOCRIT. 28.4 % (36.0-48.0); HEMOGLOBIN. 9.7 g/dL (12.0-16.0); LYMPHOCYTES % 12.3 % (20.0-50.0); MEAN CORPUSCULAR VOLUME 85.2 fL (81.0-99.0); MEAN PLATELET VOLUME 8.5 fl (7.4-10.4); MONOCYTES % 6.8 % (2.0-8.0); NEUTROPHILS % 78.5 % (40.0-76.0); PLATELET 434 x1000/uL (130-400); RED BLOOD CELL COUNT 3.34 mill/uL (4.2-5.4); RED CELL DISTRIBUTION WIDTH 16.4 % (11.6-14.6)
[2019-09-18 07:12] LABS: FOLIC ACID (FOLATE) SERUM 14.9 ng/mL (>5.38)
[2019-09-18 08:09] VITALS: BP 105/61
[2019-09-18] MEDS: LIDOCAINE 5% PATCH TOP SCH (08:28)
[2019-09-18] MEDS: SEVELAMER CARBONATE 800 MG TABLET PO SCH ×3 (08:29→16:11)
[2019-09-18] MEDS: GUAIFENESIN 600MG ER TABLET PO SCH ×2 (08:29→20:56)
[2019-09-18] MEDS: CLOPIDOGREL 75MG TABLET PO SCH (08:29)
[2019-09-18] MEDS: FOLIC ACID/VITAMIN B COMP W-C TABLET PO SCH (08:29)
[2019-09-18] MEDS: ZINC SULFATE 220 MG ( 50 ) CAPSULE PO SCH (08:29)
[2019-09-18] MEDS: ASCORBIC ACID 500 MG TABLET PO SCH ×2 (08:29→20:56)
[2019-09-18] MEDS: ENOXAPARIN 30MG/0.3ML SYR SUBCUT SCH (08:29)
[2019-09-18] MEDS: CEFAZOLIN 2,000 MG in DEXT 5% WATER 100 ML IV SCH (16:11)
[2019-09-18 19:38] LABS: CLARITY URINE TURBID (CLEAR); COLOR URINE YELLOW (YELLOW); KETONES URINE NEGATIVE (NEGATIVE); LEUKOCYTE ESTERASE URINE 3+ (NEGATIVE); NITRITE URINE NEGATIVE (NEGATIVE); OCCULT BLOOD URINE 2+ (NEGATIVE); PROTEIN URINE 3+ (NEGATIVE); SPECIFIC GRAVITY URINE 1.015 (1.005-1.030); UROBILINOGEN URINE 0.2 E.U./dL (0.2-1.0)
[2019-09-18 20:00] VITALS: BP 106/64
[2019-09-18] MEDS: FAMOTIDINE 20MG TABLET PO SCH (20:56)
[2019-09-18] MEDS: ACETAMINOPHEN 325MG TABLET PO PRN (20:57)
[2019-09-19] MEDS: IPRATROPIUM/ALBUTEROL 0.5-3(2.5)MG/3ML NEB HHN SCH ×3 (01:05→15:05)
[2019-09-19] MEDS: ACETAMINOPHEN 325MG TABLET PO PRN ×2 (05:15→21:20)
[2019-09-19] MEDS: METHYL SALICYLATE/MENTHOL CREAM 85GM TOP SCH ×4 (06:00→17:37)
[2019-09-19 07:53] VITALS: BP 102/62
[2019-09-19] MEDS ORDERED: HEPARIN 1000 UNITS/ML 10ML ONE (08:29)
[2019-09-19] MEDS: ENOXAPARIN 30MG/0.3ML SYR SUBCUT SCH (08:50)
[2019-09-19] MEDS: FOLIC ACID/VITAMIN B COMP W-C TABLET PO SCH (08:52)
[2019-09-19] MEDS: ZINC SULFATE 220 MG ( 50 ) CAPSULE PO SCH (08:52)
[2019-09-19] MEDS: GUAIFENESIN 600MG ER TABLET PO SCH ×2 (08:52→21:19)
[2019-09-19] MEDS: ASCORBIC ACID 500 MG TABLET PO SCH ×2 (08:52→21:19)
[2019-09-19] MEDS: SEVELAMER CARBONATE 800 MG TABLET PO SCH ×3 (08:52→17:36)
[2019-09-19] MEDS: CLOPIDOGREL 75MG TABLET PO SCH (08:52)
[2019-09-19] MEDS: LIDOCAINE 5% PATCH TOP SCH (08:58)
[2019-09-19] MEDS: CEFAZOLIN 2,000 MG in DEXT 5% WATER 100 ML IV SCH (17:36)
[2019-09-19] MEDS: BISACODYL 5MG TABLET PO PRN (17:36)
[2019-09-19 20:00] VITALS: BP 108/68
[2019-09-19] MEDS: FAMOTIDINE 20MG TABLET PO SCH (21:21)
[2019-09-20] MEDS: METHYL SALICYLATE/MENTHOL CREAM 85GM TOP SCH ×4 (06:13→17:36)
[2019-09-20 08:00] VITALS: BP 115/75
[2019-09-20] MEDS: ENOXAPARIN 30MG/0.3ML SYR SUBCUT SCH (10:18)
[2019-09-20] MEDS: ASCORBIC ACID 500 MG TABLET PO SCH ×2 (10:18→21:25)
[2019-09-20] MEDS: FOLIC ACID/VITAMIN B COMP W-C TABLET PO SCH (10:18)
[2019-09-20] MEDS: GUAIFENESIN 600MG ER TABLET PO SCH ×2 (10:19→21:25)
[2019-09-20] MEDS: SEVELAMER CARBONATE 800 MG TABLET PO SCH ×3 (10:19→16:36)
[2019-09-20] MEDS: CLOPIDOGREL 75MG TABLET PO SCH (10:19)
[2019-09-20] MEDS: ZINC SULFATE 220 MG ( 50 ) CAPSULE PO SCH (10:19)
[2019-09-20] MEDS ORDERED: LACTULOSE 20G/30ML UDC PO SCH (12:00)
[2019-09-20] MEDS: LIDOCAINE 5% PATCH TOP SCH (13:34)
[2019-09-20] MEDS: CEFAZOLIN 2,000 MG in DEXT 5% WATER 100 ML IV SCH (16:35)
[2019-09-20 20:00] VITALS: BP 103/53
[2019-09-20] MEDS: FAMOTIDINE 20MG TABLET PO SCH (21:25)
[2019-09-20] MEDS: TRAMADOL 50MG TABLET PO PRN (21:39)
[2019-09-21] MEDS: TRAMADOL 50MG TABLET PO PRN (06:38)
[2019-09-21] MEDS: METHYL SALICYLATE/MENTHOL CREAM 85GM TOP SCH ×4 (06:38→18:07)
[2019-09-21] MEDS: FOLIC ACID/VITAMIN B COMP W-C TABLET PO SCH (08:41)
[2019-09-21] MEDS: ASCORBIC ACID 500 MG TABLET PO SCH ×2 (08:41→20:23)
[2019-09-21] MEDS: GUAIFENESIN 600MG ER TABLET PO SCH ×2 (08:41→20:23)
[2019-09-21] MEDS: SEVELAMER CARBONATE 800 MG TABLET PO SCH ×3 (08:41→16:09)
[2019-09-21] MEDS: CLOPIDOGREL 75MG TABLET PO SCH (08:41)
[2019-09-21] MEDS: BISACODYL 10MG SUPP PR SCH (08:42)
[2019-09-21] MEDS: ZINC SULFATE 220 MG ( 50 ) CAPSULE PO SCH (08:42)
[2019-09-21] MEDS: ENOXAPARIN 30MG/0.3ML SYR SUBCUT SCH (08:42)
[2019-09-21] MEDS: LIDOCAINE 5% PATCH TOP SCH (08:42)
[2019-09-21 09:18] LABS: BASOPHILS % 0.8 % (0.0-2.0); HEMATOCRIT. 29.4 % (36.0-48.0); HEMOGLOBIN. 9.8 g/dL (12.0-16.0); LYMPHOCYTES % 17.9 % (20.0-50.0); MEAN CORPUSCULAR HEMOGLOBIN 29.1 pg (28.0-32.0); MEAN CORPUSCULAR VOLUME 87.6 fL (81.0-99.0); MEAN PLATELET VOLUME 8.5 fl (7.4-10.4); MONOCYTES % 11.2 % (2.0-8.0); NEUTROPHILS % 68.1 % (40.0-76.0); PLATELET 373 x1000/uL (130-400); RED BLOOD CELL COUNT 3.36 mill/uL (4.2-5.4); RED CELL DISTRIBUTION WIDTH 17.2 % (11.6-14.6)
[2019-09-21 20:00] VITALS: BP 139/75
[2019-09-21] MEDS: FAMOTIDINE 20MG TABLET PO SCH (20:23)
[2019-09-21] MEDS: ACETAMINOPHEN 325MG TABLET PO PRN (20:23)
[2019-09-21] MEDS: CEFAZOLIN 2,000 MG in DEXT 5% WATER 100 ML IV SCH (20:24)
[2019-09-22] MEDS: ACETAMINOPHEN 325MG TABLET PO PRN (02:21)
[2019-09-22] MEDS: BISACODYL 5MG TABLET PO PRN (06:34)
[2019-09-22] MEDS: TRAMADOL 50MG TABLET PO PRN (06:35)
[2019-09-22] MEDS: METHYL SALICYLATE/MENTHOL CREAM 85GM TOP SCH ×4 (06:36→17:58)
[2019-09-22 08:07] VITALS: BP 108/58
[2019-09-22 08:11] LABS: 25-HYDROXY VITAMIN D3 3.3 ng/mL (.)
[2019-09-22] MEDS: FOLIC ACID/VITAMIN B COMP W-C TABLET PO SCH (08:27)
[2019-09-22] MEDS: SEVELAMER CARBONATE 800 MG TABLET PO SCH ×3 (08:27→17:23)
[2019-09-22] MEDS: GUAIFENESIN 600MG ER TABLET PO SCH ×2 (08:27→21:38)
[2019-09-22] MEDS: ZINC SULFATE 220 MG ( 50 ) CAPSULE PO SCH (08:27)
[2019-09-22] MEDS: ASCORBIC ACID 500 MG TABLET PO SCH ×2 (08:27→21:38)
[2019-09-22] MEDS: CLOPIDOGREL 75MG TABLET PO SCH (08:28)
[2019-09-22] MEDS: ENOXAPARIN 30MG/0.3ML SYR SUBCUT SCH (08:28)
[2019-09-22] MEDS: BISACODYL 10MG SUPP PR SCH (08:28)
[2019-09-22] MEDS: LIDOCAINE 5% PATCH TOP SCH (08:29)
[2019-09-22] MEDS: CEFAZOLIN 2,000 MG in DEXT 5% WATER 100 ML IV SCH (15:11)
[2019-09-22 20:00] VITALS: BP 125/79
[2019-09-22] MEDS: FAMOTIDINE 20MG TABLET PO SCH (21:39)
[2019-09-22 23:52] VITALS: BP 125/79
[2019-09-23] MEDS: METHYL SALICYLATE/MENTHOL CREAM 85GM TOP SCH ×5 (00:56→23:07)
[2019-09-23] MEDS: TRAMADOL 50MG TABLET PO PRN (04:26)
[2019-09-23 08:00] VITALS: BP 104/59
[2019-09-23] MEDS: BISACODYL 10MG SUPP PR SCH (09:00)
[2019-09-23] MEDS: ZINC SULFATE 220 MG ( 50 ) CAPSULE PO SCH (09:21)
[2019-09-23] MEDS: GUAIFENESIN 600MG ER TABLET PO SCH ×2 (09:21→21:51)
[2019-09-23] MEDS: CLOPIDOGREL 75MG TABLET PO SCH (09:21)
[2019-09-23] MEDS: ASCORBIC ACID 500 MG TABLET PO SCH ×2 (09:21→21:50)
[2019-09-23] MEDS: LIDOCAINE 5% PATCH TOP SCH (09:22)
[2019-09-23] MEDS: SEVELAMER CARBONATE 800 MG TABLET PO SCH ×3 (09:22→16:13)
[2019-09-23] MEDS: ENOXAPARIN 30MG/0.3ML SYR SUBCUT SCH (09:22)
[2019-09-23] MEDS: FOLIC ACID/VITAMIN B COMP W-C TABLET PO SCH (09:22)
[2019-09-23] MEDS: CEFAZOLIN 2,000 MG in DEXT 5% WATER 100 ML IV SCH (16:13)
[2019-09-23] MEDS: LACTULOSE 20G/30ML UDC PO PRN (18:43)
[2019-09-23 20:00] VITALS: BP 115/73
[2019-09-23 20:19] LABS: BASOPHILS % 0.6 % (0.0-2.0); EOSINOPHILS % 1.6 % (0.0-5.0); HEMATOCRIT. 32.4 % (36.0-48.0); HEMOGLOBIN. 10.6 g/dL (12.0-16.0); LYMPHOCYTES % 12.2 % (20.0-50.0); MEAN CORPUSCULAR HEMOGLOBIN 28.5 pg (28.0-32.0); MEAN CORPUSCULAR VOLUME 87.1 fL (81.0-99.0); MEAN PLATELET VOLUME 8.6 fl (7.4-10.4); MONOCYTES % 7.3 % (2.0-8.0); NEUTROPHILS % 78.3 % (40.0-76.0); PLATELET 374 x1000/uL (130-400); RED BLOOD CELL COUNT 3.72 mill/uL (4.2-5.4); RED CELL DISTRIBUTION WIDTH 17.4 % (11.6-14.6)
[2019-09-23] MEDS: FAMOTIDINE 20MG TABLET PO SCH (21:51)
[2019-09-24] MEDS: METHYL SALICYLATE/MENTHOL CREAM 85GM TOP SCH ×3 (05:43→17:26)
[2019-09-24] MEDS: TRAMADOL 50MG TABLET PO PRN (05:51)
[2019-09-24 06:23] LABS: EOSINOPHILS % 1.8 % (0.0-5.0); HEMATOCRIT. 30.9 % (36.0-48.0); HEMOGLOBIN. 10.3 g/dL (12.0-16.0); LYMPHOCYTES % 12.6 % (20.0-50.0); MEAN CORPUSCULAR HEMOGLOBIN 29.1 pg (28.0-32.0); MEAN CORPUSCULAR VOLUME 86.9 fL (81.0-99.0); MEAN PLATELET VOLUME 8.6 fl (7.4-10.4); MONOCYTES % 9.9 % (2.0-8.0); NEUTROPHILS % 74.7 % (40.0-76.0); PLATELET 379 x1000/uL (130-400); RED BLOOD CELL COUNT 3.55 mill/uL (4.2-5.4)
[2019-09-24 06:47] LABS: CHLORIDE 99 mEq/L (98-107)
[2019-09-24 08:00] VITALS: BP 100/55
[2019-09-24] MEDS: BISACODYL 10MG SUPP PR SCH (09:00)
[2019-09-24] MEDS ORDERED: IBUPROFEN 200MG TABLET PO SCH (09:00)
[2019-09-24] MEDS: ZINC SULFATE 220 MG ( 50 ) CAPSULE PO SCH (09:03)
[2019-09-24] MEDS: FOLIC ACID/VITAMIN B COMP W-C TABLET PO SCH (09:03)
[2019-09-24] MEDS: GUAIFENESIN 600MG ER TABLET PO SCH ×2 (09:07→20:58)
[2019-09-24] MEDS: CLOPIDOGREL 75MG TABLET PO SCH (09:07)
[2019-09-24] MEDS: ASCORBIC ACID 500 MG TABLET PO SCH ×2 (09:07→20:58)
[2019-09-24] MEDS: SEVELAMER CARBONATE 800 MG TABLET PO SCH ×3 (09:07→16:35)
[2019-09-24] MEDS: ACETAMINOPHEN 500MG TABLET PO SCH ×3 (09:07→16:35)
[2019-09-24] MEDS: LIDOCAINE 5% PATCH TOP SCH (09:08)
[2019-09-24] MEDS: ENOXAPARIN 30MG/0.3ML SYR SUBCUT SCH (09:08)
[2019-09-24] MEDS ORDERED: ACETAMINOPHEN 325MG TABLET PO PRN ×2 (12:15)
[2019-09-24] MEDS ORDERED: CEFAZOLIN 2000MG PREMIX 100 ML IV SCH (13:15)
[2019-09-24] MEDS: CEFAZOLIN 2000MG in DEXTROSE 5% WATER 100ML IV SCH (17:23)
[2019-09-24 20:00] VITALS: BP 118/70
[2019-09-24] MEDS: FAMOTIDINE 20MG TABLET PO SCH (20:58)
[2019-09-25] MEDS: METHYL SALICYLATE/MENTHOL CREAM 85GM TOP SCH ×5 (00:11→23:35)
[2019-09-25 08:18] VITALS: BP 106/66
[2019-09-25] MEDS: BISACODYL 10MG SUPP PR SCH (09:00)
[2019-09-25] MEDS: LIDOCAINE 5% PATCH TOP SCH (10:12)
[2019-09-25] MEDS: SEVELAMER CARBONATE 800 MG TABLET PO SCH ×3 (10:12→17:13)
[2019-09-25] MEDS: ZINC SULFATE 220 MG ( 50 ) CAPSULE PO SCH (10:12)
[2019-09-25] MEDS: GUAIFENESIN 600MG ER TABLET PO SCH ×2 (10:12→20:53)
[2019-09-25] MEDS: FOLIC ACID/VITAMIN B COMP W-C TABLET PO SCH (10:13)
[2019-09-25] MEDS: ASCORBIC ACID 500 MG TABLET PO SCH ×2 (10:13→20:53)
[2019-09-25] MEDS: ENOXAPARIN 30MG/0.3ML SYR SUBCUT SCH (10:13)
[2019-09-25] MEDS: CLOPIDOGREL 75MG TABLET PO SCH (10:13)
[2019-09-25] MEDS: ACETAMINOPHEN 500MG TABLET PO SCH (10:13)
[2019-09-25] MEDS: CEFAZOLIN 2000MG in DEXTROSE 5% WATER 100ML IV SCH (17:13)
[2019-09-25 20:00] VITALS: BP 101/58
[2019-09-25] MEDS: FAMOTIDINE 20MG TABLET PO SCH (20:53)
[2019-09-26] MEDS: METHYL SALICYLATE/MENTHOL CREAM 85GM TOP SCH ×3 (05:20→17:19)
[2019-09-26 07:49] LABS: HEMATOCRIT. 30.5 % (36.0-48.0); HEMOGLOBIN. 10.3 g/dL (12.0-16.0); MEAN CORPUSCULAR HEMOGLOBIN 29.4 pg (28.0-32.0); MEAN CORPUSCULAR VOLUME 87.3 fL (81.0-99.0); MEAN PLATELET VOLUME 8.4 fl (7.4-10.4); PLATELET 345 x1000/uL (130-400); RED BLOOD CELL COUNT 3.49 mill/uL (4.2-5.4); RED CELL DISTRIBUTION WIDTH 17.3 % (11.6-14.6)
[2019-09-26 08:17] VITALS: BP 109/61
[2019-09-26] MEDS: ENOXAPARIN 30MG/0.3ML SYR SUBCUT SCH (08:37)
[2019-09-26] MEDS: LIDOCAINE 5% PATCH TOP SCH (08:38)
[2019-09-26] MEDS: BISACODYL 10MG SUPP PR SCH (08:38)
[2019-09-26] MEDS: GUAIFENESIN 600MG ER TABLET PO SCH ×2 (08:38→21:31)
[2019-09-26] MEDS: ASCORBIC ACID 500 MG TABLET PO SCH ×2 (08:38→21:31)
[2019-09-26] MEDS: CLOPIDOGREL 75MG TABLET PO SCH (08:38)
[2019-09-26] MEDS: SEVELAMER CARBONATE 800 MG TABLET PO SCH ×3 (08:38→16:13)
[2019-09-26] MEDS: ZINC SULFATE 220 MG ( 50 ) CAPSULE PO SCH (08:38)
[2019-09-26] MEDS: FOLIC ACID/VITAMIN B COMP W-C TABLET PO SCH (08:38)
[2019-09-26 10:49] LABS: PLATELET ESTIMATE NORMAL
[2019-09-26] MEDS: TRAMADOL 50MG TABLET PO PRN (11:27)
[2019-09-26] MEDS: CEFAZOLIN 2000MG in DEXTROSE 5% WATER 100ML IV SCH (17:56)
[2019-09-26 20:00] VITALS: BP 119/79
[2019-09-26] MEDS: FAMOTIDINE 20MG TABLET PO SCH (21:31)
[2019-09-26] MEDS: OXYCODONE HCL 5MG TABLET PO SCH (21:32)
[2019-09-26] MEDS: LACTULOSE 20G/30ML UDC PO PRN (21:32)
[2019-09-27] MEDS: METHYL SALICYLATE/MENTHOL CREAM 85GM TOP SCH ×4 (00:48→17:05)
[2019-09-27] MEDS: BISACODYL 5MG TABLET PO PRN (06:09)
[2019-09-27] MEDS: TRAMADOL 50MG TABLET PO PRN (06:15)
[2019-09-27 07:02] LABS: BASOPHILS % 0.3 % (0.0-2.0); HEMATOCRIT. 30.9 % (36.0-48.0); HEMOGLOBIN. 10.2 g/dL (12.0-16.0); LYMPHOCYTES % 13.8 % (20.0-50.0); MEAN CORPUSCULAR HEMOGLOBIN 28.8 pg (28.0-32.0); MEAN CORPUSCULAR VOLUME 87.7 fL (81.0-99.0); MEAN PLATELET VOLUME 8.6 fl (7.4-10.4); MONOCYTES % 13.8 % (2.0-8.0); NEUTROPHILS % 70.1 % (40.0-76.0); PLATELET 366 x1000/uL (130-400); RED BLOOD CELL COUNT 3.52 mill/uL (4.2-5.4); RED CELL DISTRIBUTION WIDTH 17.5 % (11.6-14.6)
[2019-09-27 08:00] VITALS: BP 124/76
[2019-09-27] MEDS: SEVELAMER CARBONATE 800 MG TABLET PO SCH ×3 (08:40→17:00)
[2019-09-27] MEDS: FOLIC ACID/VITAMIN B COMP W-C TABLET PO SCH (08:41)
[2019-09-27] MEDS: ASCORBIC ACID 500 MG TABLET PO SCH ×2 (08:41→21:17)
[2019-09-27] MEDS: GUAIFENESIN 600MG ER TABLET PO SCH ×2 (08:41→21:17)
[2019-09-27] MEDS: ENOXAPARIN 30MG/0.3ML SYR SUBCUT SCH (08:42)
[2019-09-27] MEDS: BISACODYL 10MG SUPP PR SCH (08:42)
[2019-09-27] MEDS: CLOPIDOGREL 75MG TABLET PO SCH (08:42)
[2019-09-27] MEDS: LIDOCAINE 5% PATCH TOP SCH (08:42)
[2019-09-27] MEDS: ZINC SULFATE 220 MG ( 50 ) CAPSULE PO SCH (08:42)
[2019-09-27] MEDS: OXYCODONE HCL 5MG TABLET PO SCH ×4 (08:43→16:19)
[2019-09-27 20:06] VITALS: BP 116/64
[2019-09-27] MEDS: CEFAZOLIN 2000MG in DEXTROSE 5% WATER 100ML IV SCH (21:16)
[2019-09-27] MEDS: FAMOTIDINE 20MG TABLET PO SCH (21:17)
[2019-09-28] MEDS: METHYL SALICYLATE/MENTHOL CREAM 85GM TOP SCH ×5 (00:06→23:35)
[2019-09-28] MEDS: BISACODYL 5MG TABLET PO PRN (05:44)
[2019-09-28] MEDS: TRAMADOL 50MG TABLET PO PRN (05:45)
[2019-09-28 08:05] VITALS: BP 108/73
[2019-09-28] MEDS: ENOXAPARIN 30MG/0.3ML SYR SUBCUT SCH (08:27)
[2019-09-28] MEDS: LIDOCAINE 5% PATCH TOP SCH (08:27)
[2019-09-28] MEDS: OXYCODONE HCL 5MG TABLET PO SCH ×3 (08:34→16:49)
[2019-09-28] MEDS: GUAIFENESIN 600MG ER TABLET PO SCH ×2 (08:36→21:02)
[2019-09-28] MEDS: ASCORBIC ACID 500 MG TABLET PO SCH ×2 (08:36→21:02)
[2019-09-28] MEDS: CLOPIDOGREL 75MG TABLET PO SCH (08:36)
[2019-09-28] MEDS: BISACODYL 10MG SUPP PR SCH (08:36)
[2019-09-28] MEDS: ZINC SULFATE 220 MG ( 50 ) CAPSULE PO SCH (08:36)
[2019-09-28] MEDS: FOLIC ACID/VITAMIN B COMP W-C TABLET PO SCH (08:36)
[2019-09-28] MEDS: SEVELAMER CARBONATE 800 MG TABLET PO SCH ×3 (08:36→16:49)
[2019-09-28] MEDS ORDERED: FAMO20TA8 PO (09:44)
[2019-09-28] MEDS ORDERED: ZINC220C2 PO (09:44)
[2019-09-28] MEDS ORDERED: ASCO500T20 PO (09:44)
[2019-09-28] MEDS: CEFAZOLIN 2000MG in DEXTROSE 5% WATER 100ML IV SCH (16:49)
[2019-09-28] MEDS: LACTULOSE 20G/30ML UDC PO PRN (17:35)
[2019-09-28 20:00] VITALS: BP 117/68
[2019-09-28] MEDS: FAMOTIDINE 20MG TABLET PO SCH (21:02)
[2019-09-29] MEDS: METHYL SALICYLATE/MENTHOL CREAM 85GM TOP SCH ×2 (05:50→13:28)
[2019-09-29] MEDS: BISACODYL 10MG SUPP PR SCH (06:05)
[2019-09-29 08:00] VITALS: BP 119/58
[2019-09-29] MEDS: ASCORBIC ACID 500 MG TABLET PO SCH (08:37)
[2019-09-29] MEDS: LIDOCAINE 5% PATCH TOP SCH (08:37)
[2019-09-29] MEDS: GUAIFENESIN 600MG ER TABLET PO SCH (08:37)
[2019-09-29] MEDS: ENOXAPARIN 30MG/0.3ML SYR SUBCUT SCH (08:37)
[2019-09-29] MEDS: SEVELAMER CARBONATE 800 MG TABLET PO SCH ×2 (08:37→13:26)
[2019-09-29] MEDS: FOLIC ACID/VITAMIN B COMP W-C TABLET PO SCH (08:38)
[2019-09-29] MEDS: ZINC SULFATE 220 MG ( 50 ) CAPSULE PO SCH (08:38)
[2019-09-29] MEDS: OXYCODONE HCL 5MG TABLET PO SCH ×2 (08:39→13:26)
[2019-09-29] MEDS: CLOPIDOGREL 75MG TABLET PO SCH (08:39)
[2019-09-29 09:05] LABS: BASOPHILS % 0.4 % (0.0-2.0); EOSINOPHILS % 1.7 % (0.0-5.0); HEMATOCRIT. 29.3 % (36.0-48.0); HEMOGLOBIN. 9.6 g/dL (12.0-16.0); LYMPHOCYTES % 10.1 % (20.0-50.0); MEAN CORPUSCULAR HEMOGLOBIN 29.3 pg (28.0-32.0); MEAN CORPUSCULAR VOLUME 89.2 fL (81.0-99.0); MEAN PLATELET VOLUME 8.6 fl (7.4-10.4); NEUTROPHILS % 75.8 % (40.0-76.0); PLATELET 338 x1000/uL (130-400); RED BLOOD CELL COUNT 3.29 mill/uL (4.2-5.4); RED CELL DISTRIBUTION WIDTH 17.8 % (11.6-14.6)
[2019-09-29 12:11] VITALS: BP 119/58
[2019-09-29 13:26] VITALS: BP 138/84
== END 2019-09-29 14:40 | disposition home or self-care (01) | DRG 91 ==
PROVIDERS: ADMIT Physical Medicine & Rehabilitation Spinal Cord Injury Medicine; ATTEND Internal Medicine
PROC: 5A1D70Z Performance of Urinary Filtration, Intermittent, Less than 6 Hours Per Day (ICD-10-PCS; 2019-09-15)
PROC: 5A1D70Z Performance of Urinary Filtration, Intermittent, Less than 6 Hours Per Day (ICD-10-PCS; 2019-09-16)
PROC: 5A1D70Z Performance of Urinary Filtration, Intermittent, Less than 6 Hours Per Day (ICD-10-PCS; 2019-09-19)
PROC: 0S9D3ZZ Drainage of Left Knee Joint, Percutaneous Approach (ICD-10-PCS; principal; 2019-09-21)
PROC: 0S9C3ZZ Drainage of Right Knee Joint, Percutaneous Approach (ICD-10-PCS; 2019-09-21)
PROC: 5A1D70Z Performance of Urinary Filtration, Intermittent, Less than 6 Hours Per Day (ICD-10-PCS; 2019-09-21)
PROC: 5A1D70Z Performance of Urinary Filtration, Intermittent, Less than 6 Hours Per Day (ICD-10-PCS; 2019-09-22)
PROC: 5A1D70Z Performance of Urinary Filtration, Intermittent, Less than 6 Hours Per Day (ICD-10-PCS; 2019-09-23)
PROC: 5A1D70Z Performance of Urinary Filtration, Intermittent, Less than 6 Hours Per Day (ICD-10-PCS; 2019-09-24)
PROC: 3E0233Z Introduction of Anti-inflammatory into Muscle, Percutaneous Approach (ICD-10-PCS; 2019-09-24)
PROC: 3E023BZ Introduction of Anesthetic Agent into Muscle, Percutaneous Approach (ICD-10-PCS; 2019-09-24)
PROC: 5A1D70Z Performance of Urinary Filtration, Intermittent, Less than 6 Hours Per Day (ICD-10-PCS; 2019-09-27)
PROC: 5A1D70Z Performance of Urinary Filtration, Intermittent, Less than 6 Hours Per Day (ICD-10-PCS; 2019-09-29)
DX: G92 Toxic encephalopathy (principal); A41.01 Sepsis due to Methicillin susceptible Staphylococcus aureus; E43 Unspecified severe protein-calorie malnutrition; G82.50 Quadriplegia, unspecified; J18.9 Pneumonia, unspecified organism; N18.6 End stage renal disease; J96.00 Acute respiratory failure, unspecified whether with hypoxia or hypercapnia; E87.1 Hypo-osmolality and hyponatremia; I13.2 Hypertensive heart and chronic kidney disease with heart failure and with stage 5 chronic kidney disease, or end stage renal disease; I50.32 Chronic diastolic (congestive) heart failure; I42.9 Cardiomyopathy, unspecified; R41.4 Neurologic neglect syndrome; R47.01 Aphasia; I69.354 Hemiplegia and hemiparesis following cerebral infarction affecting left non-dominant side; N39.0 Urinary tract infection, site not specified; D63.8 Anemia in other chronic diseases classified elsewhere; E66.9 Obesity, unspecified; E78.00 Pure hypercholesterolemia, unspecified; E78.5 Hyperlipidemia, unspecified; E87.5 Hyperkalemia; F03.90 Unspecified dementia, unspecified severity, without behavioral disturbance, psychotic disturbance, mood disturbance, and anxiety; F32.9 Major depressive disorder, single episode, unspecified; M19.90 Unspecified osteoarthritis, unspecified site; M76.9 Unspecified enthesopathy, lower limb, excluding foot; R74.0 Nonspecific elevation of levels of transaminase and lactic acid dehydrogenase [LDH]; R47.1 Dysarthria and anarthria; R53.81 Other malaise; B96.20 Unspecified Escherichia coli [E. coli] as the cause of diseases classified elsewhere; G89.29 Other chronic pain; Z79.899 Other long term (current) drug therapy; Z88.2 Allergy status to sulfonamides; Z79.02 Long term (current) use of antithrombotics/antiplatelets; Z82.49 Family history of ischemic heart disease and other diseases of the circulatory system; Z68.32 Body mass index [BMI] 32.0-32.9, adult; Z99.2 Dependence on renal dialysis
CPT/HCPCS: 36415; 73560; 78806; 80048; 80053; 81003; 82140; 82306; 82607; 82728; 82746; 83540; 83550; 83735; 84100; 84134; 84443; 84550; 85025; 85651; 86140; 92523; 92610; 93970; 97110; 97112; 97116; 97162; 97166; 97530; 97535; A9547; J0690; J1644; J1650; J2405; J7060

== ENCOUNTER 2021-10-11 16:16 | Inpatient (IN) | payer MEDICARE, BC ==
[~2021-10-11] VITALS: Ht 162.6 cm; Wt 79.8 kg
[~2021-10-11 16:16] MED LIST changes: +ASCO500T20 PO; +CLOP-31 PO; -CLOP75TA4 PO; +FAMO20TA8 PO; +ZINC220C2 PO
[2021-10-11 17:47] LABS: BASOPHILS % 0.4 % (0.0-2.0); EOSINOPHILS % 2.9 % (0.0-5.0); HEMATOCRIT. 36.5 % (36.0-48.0); HEMOGLOBIN. 11.4 g/dL (12.0-16.0); MEAN CORPUSCULAR HEMOGLOBIN 28.9 pg (28.0-32.0); MEAN CORPUSCULAR VOLUME 92.9 fL (81.0-99.0); MEAN PLATELET VOLUME 9.3 fl (7.4-10.4); MONOCYTES % 12.3 % (2.0-8.0); NEUTROPHILS % 64.4 % (40.0-76.0); PLATELET 205 x1000/uL (130-400); RED BLOOD CELL COUNT 3.93 mill/uL (4.2-5.4); RED CELL DISTRIBUTION WIDTH 16.4 % (11.6-14.6)
[2021-10-11 17:59] LABS: CHLORIDE 106 mEq/L (98-107)
[2021-10-12 00:14] LABS: PARTIAL THROMBOPLASTIN TIME 29.9 sec (23.4-31.0); PROTHROMBIN TIME 11.1 sec (9.6-11.0)
[2021-10-12 08:00] VITALS: BP 117/72
[2021-10-12] MEDS ORDERED: ACETAMINOPHEN 325MG TABLET PO PRN (09:30)
[2021-10-12] MEDS ORDERED: DIPHENHYDRAMINE 50MG/ML VIAL IV PRN (09:30)
[2021-10-12] MEDS ORDERED: ONDANSETRON HCL 4MG/2ML INJ IV PRN (09:30)
[2021-10-12] MEDS ORDERED: IPRATROPIUM/ALBUTEROL 0.5-3(2.5)MG/3ML NEB HHN PRN (09:30)
[2021-10-12] MEDS ORDERED: CLONIDINE 0.1MG TABLET PO PRN (09:30)
[2021-10-12 10:05] VITALS: BP 117/72
[2021-10-12 12:00] VITALS: BP 125/73
[2021-10-12] MEDS ORDERED: ATOR20TA65 PO (14:56)
[2021-10-12] MEDS ORDERED: METO25TA6 PO (14:56)
[2021-10-12] MEDS ORDERED: DOCU-150 PO (14:56)
[2021-10-12] MEDS ORDERED: CALC667C MT (14:56)
[2021-10-12] MEDS ORDERED: ERGO1250 (14:56)
[2021-10-12] MEDS ORDERED: GABA-529 PO (14:56)
[2021-10-12 15:37] VITALS: BP 121/64
[2021-10-12] MEDS: GABAPENTIN 100MG CAPSULE PO SCH (17:38)
[2021-10-12 20:00] VITALS: BP 136/82
[2021-10-13] VITALS: BP 120/70
[2021-10-13 00:40] LABS: CHLORIDE 105 mEq/L (98-107)
[2021-10-13 04:00] VITALS: BP 136/85
[2021-10-13 08:12] LABS: HEMATOCRIT. 32.2 % (36.0-48.0); HEMOGLOBIN. 10.4 g/dL (12.0-16.0); MEAN CORPUSCULAR HEMOGLOBIN 29.2 pg (28.0-32.0); MEAN CORPUSCULAR VOLUME 90.4 fL (81.0-99.0); MEAN PLATELET VOLUME 9.7 fl (7.4-10.4); PLATELET 193 x1000/uL (130-400); RED BLOOD CELL COUNT 3.56 mill/uL (4.2-5.4); RED CELL DISTRIBUTION WIDTH 15.4 % (11.6-14.6)
[2021-10-13] MEDS ORDERED: LIDOCAINE HCL/PF 1% 10 MG/ML 5ML VIAL ONE (09:06)
[2021-10-13] MEDS: GABAPENTIN 100MG CAPSULE PO SCH ×2 (10:54→18:09)
[2021-10-13 10:55] LABS: PLATELET ESTIMATE NORMAL
[2021-10-13 12:00] VITALS: BP 130/82
[2021-10-13 16:00] VITALS: BP 140/92
[2021-10-13 20:00] VITALS: BP 136/86
[2021-10-13 22:02] LABS: HEPATITIS B SURFACE ANTIGEN NEGATIVE
[2021-10-14] VITALS: BP 144/78
[2021-10-14 04:00] VITALS: BP 116/66
[2021-10-14 06:35] LABS: HEMATOCRIT. 30.7 % (36.0-48.0); HEMOGLOBIN. 9.8 g/dL (12.0-16.0); MEAN CORPUSCULAR HEMOGLOBIN 28.5 pg (28.0-32.0); MEAN CORPUSCULAR VOLUME 89.7 fL (81.0-99.0); MEAN PLATELET VOLUME 9.6 fl (7.4-10.4); PLATELET 180 x1000/uL (130-400); RED BLOOD CELL COUNT 3.43 mill/uL (4.2-5.4); RED CELL DISTRIBUTION WIDTH 15.3 % (11.6-14.6)
[2021-10-14 08:00] VITALS: BP 125/72
[2021-10-14] MEDS: GABAPENTIN 100MG CAPSULE PO SCH ×2 (08:36→17:49)
[2021-10-14 12:00] VITALS: BP 118/74
[2021-10-14 16:00] VITALS: BP 122/75
[2021-10-14 20:00] VITALS: BP 134/80
[2021-10-14 22:04] LABS: PLATELET ESTIMATE NORMAL
[2021-10-15] VITALS: BP 113/70
[2021-10-15 05:25] VITALS: BP 117/64
[2021-10-15 07:16] LABS: HEMATOCRIT. 30.1 % (36.0-48.0); HEMOGLOBIN. 9.8 g/dL (12.0-16.0); MEAN CORPUSCULAR HEMOGLOBIN 29.1 pg (28.0-32.0); MEAN CORPUSCULAR VOLUME 89.9 fL (81.0-99.0); MEAN PLATELET VOLUME 9.6 fl (7.4-10.4); PLATELET 191 x1000/uL (130-400); RED BLOOD CELL COUNT 3.35 mill/uL (4.2-5.4); RED CELL DISTRIBUTION WIDTH 15.7 % (11.6-14.6)
[2021-10-15 08:00] VITALS: BP 108/70
[2021-10-15] MEDS ORDERED: ACETAMINOPHEN 325MG TABLET PO PRN (08:15)
[2021-10-15] MEDS: GABAPENTIN 100MG CAPSULE PO SCH ×2 (08:29→17:05)
[2021-10-15 12:00] VITALS: BP 126/75
[2021-10-15] MEDS ORDERED: HYDROCODONE/ACETAMINOPHEN 5/325MG TABLET PO PRN (13:00)
[2021-10-15 14:54] LABS: PLATELET ESTIMATE NORMAL
[2021-10-15] MEDS ORDERED: VANCOMYCIN 500 MG in DEXT 5% WATER 100 ML IV NR (15:00)
[2021-10-15] MEDS: AMOXICILLIN/POTASSIUM CLAVULANATE 500/125MG TAB PO SCH ×2 (15:32→21:13)
[2021-10-15 16:00] VITALS: BP 131/68
[2021-10-15] MEDS ORDERED: VANCOMYCIN 1GM PMX (XELLIA) 200 ML IV NR (16:00)
[2021-10-15 20:00] VITALS: BP 116/79
[2021-10-15] MEDS ORDERED: AMOXICILLIN/POTASSIUM CLAVULANATE 875/125MG TAB PO SCH (21:00)
[2021-10-16] VITALS: BP 122/80
[2021-10-16 04:00] VITALS: BP 112/72
[2021-10-16 06:24] LABS: HEMATOCRIT. 28.6 % (36.0-48.0); HEMOGLOBIN. 9.4 g/dL (12.0-16.0); MEAN CORPUSCULAR HEMOGLOBIN 29.4 pg (28.0-32.0); MEAN CORPUSCULAR VOLUME 89.2 fL (81.0-99.0); MEAN PLATELET VOLUME 9.4 fl (7.4-10.4); PLATELET 195 x1000/uL (130-400); RED BLOOD CELL COUNT 3.21 mill/uL (4.2-5.4); RED CELL DISTRIBUTION WIDTH 15.6 % (11.6-14.6)
[2021-10-16 08:00] VITALS: BP 123/70
[2021-10-16] MEDS: AMOXICILLIN/POTASSIUM CLAVULANATE 500/125MG TAB PO SCH (09:08)
[2021-10-16] MEDS: GABAPENTIN 100MG CAPSULE PO SCH ×2 (09:08→16:27)
[2021-10-16 12:00] VITALS: BP 120/70
[2021-10-16 12:11] LABS: PLATELET ESTIMATE NORMAL
[2021-10-16] MEDS ORDERED: [UNRECOGNIZED DRUG - CODE] PO (14:18)
[2021-10-16 15:57] VITALS: BP 133/80
[2021-10-16 16:09] VITALS: BP 133/80
== END 2021-10-16 18:10 | disposition home health service (06) | DRG 314 ==
LOC: ER 16:16 → MICUSO 22:53 → EDBEDREQ 10-12 00:42 → 6WST 10-12 07:21
PROVIDERS: ADMIT Internal Medicine; ATTEND Internal Medicine
PROC: 02HV33Z Insertion of Infusion Device into Superior Vena Cava, Percutaneous Approach (ICD-10-PCS; principal; 2021-10-13)
PROC: B548ZZA Ultrasonography of Superior Vena Cava, Guidance (ICD-10-PCS; 2021-10-13)
PROC: B518ZZA Fluoroscopy of Superior Vena Cava, Guidance (ICD-10-PCS; 2021-10-13)
PROC: 5A1D70Z Performance of Urinary Filtration, Intermittent, Less than 6 Hours Per Day (ICD-10-PCS; 2021-10-13)
DX: T82.868A Thrombosis due to vascular prosthetic devices, implants and grafts, initial encounter (principal); N18.6 End stage renal disease; E44.1 Mild protein-calorie malnutrition; I12.0 Hypertensive chronic kidney disease with stage 5 chronic kidney disease or end stage renal disease; T82.7XXA Infection and inflammatory reaction due to other cardiac and vascular devices, implants and grafts, initial encounter; Y83.2 Surgical operation with anastomosis, bypass or graft as the cause of abnormal reaction of the patient, or of later complication, without mention of misadventure at the time of the procedure; K08.89 Other specified disorders of teeth and supporting structures; E87.5 Hyperkalemia; D64.9 Anemia, unspecified; E11.22 Type 2 diabetes mellitus with diabetic chronic kidney disease; Z86.73 Personal history of transient ischemic attack (TIA), and cerebral infarction without residual deficits; Y92.89 Other specified places as the place of occurrence of the external cause; Z99.2 Dependence on renal dialysis; Z68.30 Body mass index [BMI] 30.0-30.9, adult; Z88.2 Allergy status to sulfonamides; Z79.899 Other long term (current) drug therapy; Z79.02 Long term (current) use of antithrombotics/antiplatelets; Z71.6 Tobacco abuse counseling
CPT/HCPCS: 36415; 71045; 76937; 77001; 80048; 80053; 85025; 86705; 86709; 86803; 87340; 93005; 93970; 99285; C1752; C1887; J3370; J3490; J7060

== ENCOUNTER 2023-12-07 12:04 | Emergency (ER) | payer MEDICARE, BC ==
[~2023-12-07] VITALS: Ht 172.7 cm; Wt 95.0 kg
[~2023-12-07 12:04] MED LIST changes: +ATOR20TA65 PO; +CALC667C MT; +DOCU-150 PO; +ERGO1250; +GABA-529 PO; +METO25TA6 PO; +SODIUM BICARBONATE 8.4% 50MEQ/50ML SYR IV ONE; +[UNRECOGNIZED DRUG - CODE] PO
[2023-12-07 12:09] VITALS: O2SAT 0
[2023-12-07] MEDS ORDERED: DEXTROSE 50% WATER 50ML SYRINGE IV ONE (12:13)
[2023-12-07 12:43] VITALS: BP 0/0; PULSE 0; RESP 0; O2SAT 0
[2023-12-08] MEDS ORDERED: DEXTROSE 50% WATER 50ML SYRINGE IV ONE (08:45)
== END 2023-12-07 14:26 ==
LOC: ER 12:04
DX: I46.9 Cardiac arrest, cause unspecified (principal); I12.0 Hypertensive chronic kidney disease with stage 5 chronic kidney disease or end stage renal disease; N18.6 End stage renal disease; Z88.2 Allergy status to sulfonamides; Z79.899 Other long term (current) drug therapy; Z98.890 Other specified postprocedural states
CPT/HCPCS: 82962; 31500 ×2; 99285; J3490 ×2